=== PATIENT | male | born 1960 | race Caucasian/White ===

== ENCOUNTER 2016-07-15 16:39 | Inpatient (IN) | payer BC ==
[2016-07-15] MEDS ORDERED: Cyclobenzaprine TAB* 10 MG PO ONE (17:37)
--- NOTE | 2016-07-15 17:50 | ED ---
Lower Extremity - HPI Summary HPI Summary: Patient presents with right hip and back pain after slipping on ice today. His legs split apart when he fell and the brunt of the fall was absorbed by his bottom. He denies hitting his head or LOC. He was helped to his feet by two bystanders but any weight on his right hip was unbearable due to pain. He denies previous injury to the hip. No N/T, swelling or bruising. - History of Current Complaint Chief Complaint: EDExtremityLower Stated Complaint: FALL Time Seen by Provider: 07/15/16 17:09 Hx Obtained From: Patient Mechanism Of Injury: Fall From A Standing Position Onset of Pain: Immediate Onset/Duration: Still Present Severity Initially: Severe Severity Currently: Severe Pain Intensity: 7 Timing: Constant Location: Is Discrete @ - right hip Character Of Pain: Sharp, Aching Associated Signs And Symptoms: Positive: Negative Aggravating Factor(s): Standing, Movement Alleviating Factor(s): Rest Able to Bear Weight: No - Allergies/Home Medications Allergies/Adverse Reactions: Allergies Allergy/AdvReac Type Severity Reaction Status Date / Time No Known Allergies Allergy Verified 08/30/15 15:22 PMH/Surg Hx/FS Hx/Imm Hx Cardiovascular History: Reports: Hx Hypertension GI History: Reports: Hx Gastroesophageal Reflux Disease Musculoskeletal History: Reports: Hx Arthritis, Hx Back Problems, Hx Gout Sensory History: Reports: Hx Contacts or Glasses - reading, Hx Hearing Problem - slight loss right ear Opthamlomology History: Reports: Hx Contacts or Glasses - reading Psychiatric History: Reports: Hx Anxiety, Hx Depression - Surgical History Surgery Procedure, Year, and Place: appendectomy 40+ years ago; hernia repair at age 6 Infectious Disease History: No Infectious Disease History: Denies: Traveled Outside the [place] in Last 30 Days - Family History Known Family History: Positive: None - Social History Occupation: Employed Full-time Lives: With Family Alcohol Use: Daily until 10 days ago; currently none Alcohol Amount: last drink on Wednesday before that 6 beers a day and Vodka Substance Use Type: Reports: Other Substance Use Comment - Amount & Last Used: pt reports no subsance use Smoking Status (MU): Never Smoked Tobacco Review of Systems Positive: Arthralgia, Myalgia, Decreased ROM - right hip Negative: Bruising Negative: Weakness, Paresthesia, Numbness All Other Systems Reviewed And Are Negative: Yes Physical Exam Triage Information Reviewed: Yes Vital Signs On Initial Exam: Initial Vitals Temp Pulse Resp BP Pulse Ox 97.0 F 80 16 140/82 100 07/15/16 16:42 07/15/16 16:42 07/15/16 16:42 07/15/16 16:42 07/15/16 16:42 Vital Signs Reviewed: Yes Appearance: Positive: Well-Appearing, Pain Distress, Obese Skin: Positive: Warm, Skin Color Reflects Adequate Perfusion, Dry, Soft Head/Face: Positive: Normal Head/Face Inspection Eyes: Positive: EOMI, WILLEM, Conjunctiva Clear ENT: Positive: Hearing grossly normal Neck: Positive: Supple, Nontender Respiratory/Lung Sounds: Positive: Clear to Auscultation, Breath Sounds Present Cardiovascular: Positive: RRR Abdomen Description: Positive: Nontender, Soft Musculoskeletal: Positive: Limited @ - FROM left hip; right hip flex to 40, IR 10, ER 20, Pain @. Negative: Edema Right Neurological: Positive: Sensory/Motor Intact, Alert, Oriented to Person Place, Time, NV Bundle Intact Distally, Unable to Assess Gait Psychiatric: Positive: Affect/Mood Appropriate AVPU Assessment: Alert Diagnostics - Vital Signs Vital Signs Temp Pulse Resp BP Pulse Ox 07/15/16 16:42 97.0 F 80 16 140/82 100 - Laboratory Result Diagrams: 07/15/16 21:00 07/15/16 21:00 Lab Statement: Any lab studies that have been ordered have been reviewed, and results considered in the medical decision making process. - Radiology No standard instances Xray Interpretation: No Acute Changes Radiology Interpretation Completed By: Radiologist - CT No standard instances CT Interpretation: Positive (See Comments) - Right comminuted acetabular fracture CT Interpretation Completed By: Radiologist Re-Evaluation - Re-Evaluation First Eval Re-Evaluation Time: 22:10 Change: Worse Comment: Patient given pain medication and attempted to ambulate with walker and non-weight bearing on right lower extremity. He was uable to support himself and his pain intense. He is now nauseous. Lower Extremity Course/Dx - Course Course Of Treatment: Dr. Hannah recommended non-weight bearing and discharge home with follow-up in his office next week. When the patient attempted to ambulate with his walker, his pain was intense and he was unable to manage due to pain. Hospital medicine was consulted, and patient will be admitted for pain management. - Diagnoses Differential Diagnosis/HQI/PQRI: Positive: Arthritis, Cellulitis, Contusion, Fracture (Closed), Phlebitis, Puncture Wound, Sprain, Strain, Tendonitis Provider Diagnoses: Right acetabular fracture - Physician Notifications Discussed Care of Patient With: Dr. Hannah, orthopedic surgery; Dr. Reddy , hospitalist medicine Instructed by Provider To: Admit As Inpatient Discharge - Discharge Plan Condition: Stable Disposition: ADMITTED TO [facility]
[2016-07-15] MEDS ORDERED: Ibuprofen TAB* 400 MG PO ONE (18:54)
--- NOTE | 2016-07-15 19:14 | RAD ---
Indication: Right hip pain. 2 views of the right hip and an AP view of the pelvis demonstrates no fracture. No other bone or joint abnormality is identified. IMPRESSION: No fracture of the right hip or pelvis is noted.
--- NOTE | 2016-07-15 20:35 | RAD ---
Indication: Back Pain with weightbearing. CT of the lumbar spine was obtained in the axial plane. Sagittal and coronal reconstructed images were obtained. Mild compression of the L1 vertebra is noted. Age of this is undetermined. No clear fracture line or paraspinal hematoma is noted. The remainder of the vertebral bodies appear normal in height and alignment. At L5-S1 minimal broad-based protrusion flattens the epidural fat. No central foraminal stenosis is noted. L4-L5 broad-based protrusion flattens the thecal sac. Mild facet arthropathy is noted. L3-L4 broad-based protrusion flattens the thecal sac. No central or foraminal stenosis is noted. At L2-L3 minimal broad-based protrusion flattens the thecal sac. No central or foraminal stenosis is noted. At L1-L2 no disc protrusion is noted. No central or foraminal stenosis is noted. At T12-L1 broad-based protrusion flattens the thecal sac. No foraminal stenosis is noted. No evidence of fracture noted. IMPRESSION: MILD COMPRESSION OF THE L1 VERTEBRA AGE OF WHICH IS UNDETERMINED HOWEVER NO PARAVERTEBRAL SOFT TISSUE IS NOTED. BROAD-BASED PROTRUSION IS NOTED AT L4-L5, L3-L4 AND L2-L3. NO FRACTURE IS IDENTIFIED OTHERWISE. MINIMAL BROAD-BASED PROTRUSION IS NOTED AT T12-L1..
--- NOTE | 2016-07-15 20:40 | RAD ---
Indication: Pain with weightbearing in the right hip. CT of the right hip was obtained in the axial plane. Sagittal and coronal reconstructed images were obtained. The right femoral head and neck demonstrates no evidence of fracture. No impaction is noted. There is however fracture of the medial aspect of the acetabulum which is nondisplaced. The fracture is mildly comminuted. There is fracture line extending to the medial wall of the acetabulum. The anterior portion of the acetabulum is also mildly comminuted. Hematoma is noted in the right obturator muscles consistent with acute hematoma. IMPRESSION: Moderately comminuted fracture of the acetabulum especially the anterior lip extending into the medial wall with soft tissue swelling involving the obturator muscle. The right femoral head and neck are intact.
[2016-07-15] MEDS ORDERED: Ondansetron INJ* 2 MG/ML VIAL ONE (21:05)
[2016-07-15] MEDS ORDERED: Morphine INJ* 4 MG/ML 1 ML SYRINGE ONE (21:05)
[2016-07-15] MEDS ORDERED: Ondansetron INJ* 2 MG/ML VIAL IV ONE (21:11)
[2016-07-15 21:13] LABS: Hematocrit 34 % (42-52); Hemoglobin 12.1 g/dl (14.0-18.0); Mean Corpuscular HGB Conc 35 g/dl (31-36); Mean Corpuscular Hemoglobin 35 pg (27-31); Mean Corpuscular Volume 99 fL (80-94); Mean Platelet Volume 7 um3 (7.4-10.4); Red Blood Count 3.46 10^6/ul (4.0-5.4); Red Cell Distribution Width 14 % (10.5-15); White Blood Count 9.4 10^3/ul (3.5-10.8)
[2016-07-15] MEDS ORDERED: Morphine INJ* 4 MG/ML 1 ML SYRINGE IV ONE (21:20)
[2016-07-15 21:24] LABS: Albumin 4.2 g/dL (3.2-5.2); BUN/Creatinine Ratio 15.2 (8-20); Calcium 9.2 mg/dL (8.6-10.3); EGFR African American 160.6 (>60); EGFR Non-African American 124.9 (>60); Globulin 2.8 g/dL (2-4); Potassium 3.7 mmol/L (3.5-5.0); Total Bilirubin 1.5 mg/dL (0.2-1.0)
--- NOTE | 2016-07-15 22:41 | HP ---
H&P (Free Text) History and Physical: PCP: Beau Davis MD Date/Time of Evaluation: 07/15/2016 2230 CC: R hip pain s/p fall HPI: Mr Frausto is a 56YO male HX HTN who was getting out of his car ~1545 when he slipped on ice falling into a "splits" with immediate R hip pain. He was able to stand, but unable to walk. Bystanders assisted him back into his car and he drove to [facility] ED where CT RLE revealed a moderately comminuted, non- displaced R acetabular FX w/ intact femur. His pain has been unable to be adequately controlled in order for him to ambulate w/ walker, non-weight bearing to the RLE and so admission request is made. Tiago Hannah MD orthopedic surgery was consulted by ED & will follow. PMedHx HTN HX delirium tremens gout anxiety depression GERD Allergies No Known Allergies Allergy (Verified 08/30/15 15:22) Ambulatory Orders Allopurinol TAB* [Zyloprim 300 MG TAB*] 300 mg PO DAILY 08/29/15 Coenzyme D51-Qlgi Oil-Vitamin [Co-Q 10 Slater-3 Fish Oil] 1 cap PO DAILY Colchicine* [Colcrys*] 0.6 mg PO DAILY PRN 08/29/15 Glucosamine-Chondroitin [Osteo Bi-Flex Regular Str 250-200 mg] 1 tab PO BID 09/08 Irbesartan 300 mg PO DAILY 08/29/15 Multivitamins/Minerals TAB* [Theragran/minerals TAB*] 1 tab PO DAILY 08/29/15 Omeprazole CAP* [Prilosec CAP* 20 MG] 20 mg PO DAILY 08/29/15 Acetaminophen TAB* [Tylenol TAB*] 650 mg PO Q4H PRN #0 tab 08/31/15 Citalopram TAB* [Celexa TAB*] 20 mg PO DAILY #30 tab 08/31/15 Thiamine TAB* [Vitamin B-1 TAB 100 MG*] 100 mg PO DAILY tab 08/31/15 Megared Slater-3 Krill Oil 500 mg 07/15/16 PSurgHx B inguinal hernia repair appendectomy SocHx: no tobacco or recreational drugs, occasional alcohol; lives with his ; works as a employment law attorney; full code status FamHx: Father passed of complications of a brain tumor surgery. Mother is alive in her 80s. ROS: as above, otherwise reviewed and all were negative Constitutional: NAD, normally developed, obese white male vitals: Vital Signs Temp 36.1 C 07/15/16 16:42 Pulse 64 07/15/16 22:15 Resp 22 07/15/16 22:15 BP 106/60 07/15/16 22:15 Pulse Ox 96 07/15/16 22:15 Intake & Output 07/14/16 07/15/16 07/15/16 23:59 11:59 23:59 Weight 95.254 kg HEENM: atraumatic; sclera/conjunctiva: non-icteric/clear; hearing: clinically intact; oropharynx: clear Neck: soft tissue: non-tender; thyroid: normal Pulmonary: clear to auscultation bilaterally, good aeration, no accessory muscle use CV: RR/RR, normal S1S2, no carotid bruit, no jugular venous distention, 2+ B DP/ PT, no edema Abdominal: soft, non-distended, non-tender, no rebound/guarding/rigidity, normoactive bowel sounds, no hepatosplenomegaly or masses, no costovertebral angle tenderness Musculoskeletal: general: grossly intact; gait: unable to ambulate 2nd pain Integumental: normal appearance and texture of exposed skin Psychiatric orientation: AA&O to PPS affect: calm mood: cooperative eye contact: good content: reliable responses: timely insight: good Testing: Lab Results 07/15/16 07/15/16 07/15/16 Range/Units 21:00 21:00 21:00 WBC 9.4 (3.5-10.8) 10^3/ul RBC 3.46 L (4.0-5.4) 10^6/ul Hgb 12.1 L (14.0-18.0) g/dl Hct 34 L (42-52) % MCV 99 H (80-94) fL MCH 35 H (27-31) pg MCHC 35 (31-36) g/dl RDW 14 (10.5-15) % Plt Count 155 (150-450) 10^3/ul MPV 7 L (7.4-10.4) um3 Neut % (Auto) 82.5 (38-83) % Lymph % (Auto) 13.3 L (25-47) % Newberry % (Auto) 3.4 (1-9) % Eos % (Auto) 0.4 (0-6) % Baso % (Auto) 0.4 (0-2) % Absolute Neuts (auto) 7.7 (1.5-7.7) 10^3/ul Absolute Lymphs (auto) 1.2 (1.0-4.8) 10^3/ul Absolute Monos (auto) 0.3 (0-0.8) 10^3/ul Absolute Eos (auto) 0 (0-0.6) 10^3/ul Absolute Basos (auto) 0 (0-0.2) 10^3/ul Absolute Nucleated RBC 0 10^3/ul Nucleated RBC % 0 INR (Anticoag Therapy) 0.98 (0.89-1.11) Sodium 136 (133-145) mmol/L Potassium 3.7 (3.5-5.0) mmol/L Chloride 100 L (101-111) mmol/L Carbon Dioxide 21 L (22-32) mmol/L Anion Gap 15 H (2-11) mmol/L BUN 10 (6-24) mg/dL Creatinine 0.66 L (0.67-1.17) mg/dL Est GFR ( Amer) 160.6 (>60) Est GFR (Non-Af Amer) 124.9 (>60) BUN/Creatinine Ratio 15.2 (8-20) Glucose 81 (70-100) mg/dL Calcium 9.2 (8.6-10.3) mg/dL Total Bilirubin 1.50 H (0.2-1.0) mg/dL AST 46 H (13-39) U/L ALT 28 (7-52) U/L Alkaline Phosphatase 163 H (34-104) U/L Total Protein 7.0 (6.4-8.9) g/dL Albumin 4.2 (3.2-5.2) g/dL Globulin 2.8 (2-4) g/dL Albumin/Globulin Ratio 1.5 (1-3) CT RLE WO: IMPRESSION: Moderately comminuted fracture of the acetabulum especially the anterior lip extending into the medial wall with soft tissue swelling involving the obturator muscle. The right femoral head and neck are intact. XRY R hip/pelvis: IMPRESSION: No fracture of the right hip or pelvis is noted. CT L-spine WO: IMPRESSION: MILD COMPRESSION OF THE L1 VERTEBRA AGE OF WHICH IS UNDETERMINED HOWEVER NO PARAVERTEBRAL SOFT TISSUE IS NOTED. BROAD-BASED PROTRUSION IS NOTED AT L4-L5, L3-L4 AND L2-L3. NO FRACTURE IS IDENTIFIED OTHERWISE. MINIMAL BROAD-BASED PROTRUSION IS NOTED AT T12-L1. Impression: 56M presenting with moderately comminuted, non-displaced R acetabular FX w/ intractable pain 2nd mechanical fall DIAGNOSIS & PLAN Primary R acetabular FX : pain control : PT evaluation : non-weight bearing RLE : Tiago Hannah MD orthopedic surgery consulted by ED, will follow : supportive care Secondary HTN : continue irbesartan gout : continue allopurinol anxiety : continue lorazepam depression : continue citalopram HX delirium tremens : WAM protocol Admission Rational: observation for intractable pain DVTp: SCDs & heparin SQ Code Status: full HCP:
[2016-07-15] MEDS ORDERED: CMCS: Melatonin (NF) 3 MG TAB PO PRN (23:11)
[2016-07-15] MEDS ORDERED: Ondansetron INJ* 2 MG/ML VIAL IV PRN (23:11)
[2016-07-15] MEDS ORDERED: NS 0.9% 1000 ML* 1,000 ML IV SCH (23:15)
[2016-07-15] MEDS: HYDROmorphone* 1 MG/ML 1 ML SYR IV PRN (23:27)
[2016-07-15] MEDS ORDERED: Thiamine IV* 100 MG/ML 2 ML VIAL IM ONE (23:29)
[2016-07-16] MEDS: traMADol TAB* 50 MG PO PRN ×3 (00:55→21:37)
[2016-07-16] MEDS: HYDROmorphone* 1 MG/ML 1 ML SYR IV PRN ×5 (01:34→21:36)
[2016-07-16] MEDS: oxyCODONE TAB* 5 MG TAB PO PRN ×2 (04:26→09:07)
[2016-07-16] MEDS: Heparin VIAL(*) 5000 UNITS/ML VIAL (FIVE THOUSAND) SUBCUT SCH ×3 (06:26→21:36)
[2016-07-16] MEDS: Omeprazole CAP* 20 MG PO SCH (07:44)
[2016-07-16] MEDS: Losartan TAB* 25 MG PO SCH (07:44)
[2016-07-16] MEDS: Multivitamins/Minerals TAB PO SCH (07:44)
[2016-07-16] MEDS: Thiamine TAB* 100 MG TAB PO SCH (07:44)
[2016-07-16] MEDS: Docusate CAP* 100 MG PO SCH ×2 (07:44→21:37)
[2016-07-16] MEDS: Folic Acid TAB* 1 MG PO SCH (07:45)
[2016-07-16] MEDS: Citalopram TAB* 20 MG PO SCH (07:45)
[2016-07-16] MEDS: Allopurinol TAB* 300 MG PO SCH (07:45)
[2016-07-16] MEDS: LORazepam INJ* 2 MG/ML 1 ML VIAL IV SCH ×2 (07:45→10:24)
[2016-07-16] MEDS: Acetaminophen TAB* 325 MG PO PRN ×2 (09:08→16:53)
[2016-07-16 10:24] LABS: Hematocrit 33 % (42-52); Hemoglobin 11.2 g/dl (14.0-18.0); Mean Corpuscular HGB Conc 34 g/dl (31-36); Mean Corpuscular Hemoglobin 35 pg (27-31); Mean Corpuscular Volume 102 fL (80-94); Mean Platelet Volume 7 um3 (7.4-10.4); Red Blood Count 3.22 10^6/ul (4.0-5.4); Red Cell Distribution Width 15 % (10.5-15); White Blood Count 6.1 10^3/ul (3.5-10.8)
[2016-07-16 11:00] LABS: BUN/Creatinine Ratio 12.1 (8-20); Calcium 8.6 mg/dL (8.6-10.3); EGFR African American 110.8 (>60); EGFR Non-African American 86.2 (>60); Potassium 3.7 mmol/L (3.5-5.0)
--- NOTE | 2016-07-16 11:53 | PN ---
Subjective Date of Service: 07/16/16 Interval History: Patient seen and examined at bedside. Pt is drowsy but awakes to voice. Denies fever, chills, shortness of breath, chest discomfort, N/V/D, numbness or tingling. Pt reports chronic back problems, he reports fracturing his back in 1987. Family History: Unchanged from Admission Social History: Unchanged from Admission Past Medical History: Unchanged from Admission Objective Active Medications: Acetaminophen (Tylenol Tab*) 650 mg PO Q6H PRN Reason: FEVER/PAIN Allopurinol (Zyloprim Tab*) 300 mg PO DAILY ROOPA Citalopram Hydrobromide (Celexa Tab*) 20 mg PO DAILY [facility] Docusate Sodium (Colace Cap*) 200 mg PO BID ROOPA Folic Acid (Folvite Tab*) 1 mg PO DAILY ROOPA Heparin Sodium (Porcine) (Heparin Vial(*)) 5,000 units SUBCUT Q8HR ROOPA Hydromorphone HCl (Dilaudid Iv*) 1 mg IV Q2H PRN Reason: PAIN Sodium Chloride (Ns 0.9% 1000 Ml*) 1,000 mls @ 75 mls/hr IV PER RATE ROOPA Lorazepam (Ativan Inj*) 0 mg IV .PER WAM SCORE ROOPA Reason: Protocol Losartan Potassium (Cozaar Tab*) 100 mg PO DAILY ROOPA Melatonin (Melatonin (Nf)) 3 mg PO BEDTIME PRN Reason: Sleep Multivitamins/Minerals (Theragran/Minerals Tab*) 1 tab PO DAILY ROOPA Omeprazole (Prilosec Cap*) 20 mg PO DAILY ROOPA Ondansetron HCl (Zofran Inj*) 4 mg IV Q6H PRN Reason: NAUSEA Oxycodone HCl (Roxycodone Tab*) 5 mg PO Q4H PRN Reason: PAIN Thiamine HCl (Vitamin B-1 Tab*) 100 mg PO DAILY ROOPA Tramadol HCl (Ultram*) 50 mg PO Q6H PRN Reason: PAIN Vital Signs 07/15/16 07/15/16 07/15/16 23:27 23:30 23:50 Temperature 98.1 F Pulse Rate 100 93 Respiratory 16 15 18 Rate Blood Pressure 137/75 (mmHg) O2 Sat by Pulse 97 Oximetry 07/16/16 07/16/16 07/16/16 00:18 00:27 00:39 Temperature 98.1 F Pulse Rate 93 Respiratory 15 18 20 Rate Blood Pressure 137/75 (mmHg) O2 Sat by Pulse 97 Oximetry 07/16/16 07/16/16 07/16/16 04:09 04:26 05:26 Temperature 97.8 F Pulse Rate 106 Respiratory 17 16 18 Rate Blood Pressure 130/76 (mmHg) O2 Sat by Pulse 99 Oximetry 07/16/16 07/16/16 07/16/16 06:00 06:11 06:26 Temperature 98.4 F Pulse Rate 102 Respiratory 18 17 18 Rate Blood Pressure 117/76 (mmHg) O2 Sat by Pulse 97 Oximetry 07/16/16 07/16/16 07/16/16 07:26 07:31 07:32 Temperature 98.1 F Pulse Rate 105 Respiratory 18 18 18 Rate Blood Pressure 134/80 (mmHg) O2 Sat by Pulse 97 Oximetry 07/16/16 07/16/16 07/16/16 09:07 09:08 09:51 Temperature Pulse Rate 123 Respiratory 18 18 18 Rate Blood Pressure 119/68 (mmHg) O2 Sat by Pulse 93 Oximetry Oxygen Devices in Use Now: None Appearance: NAD, sitting up in a chair Eyes: No Scleral Icterus, PERRLA Ears/Nose/Mouth/Throat: NL Teeth, Lips, Gums, Mucous Membranes Moist Neck: NL Appearance and Movements; NL JVP, Trachea Midline Respiratory: Symmetrical Chest Expansion and Respiratory Effort, Clear to Auscultation Cardiovascular: NL Sounds; No Murmurs; No JVD, RRR Abdominal: NL Sounds; No Tenderness; No Distention Extremities: No Edema Skin: No Rash or Ulcers Neurological: Alert and Oriented x 3 - , drowsy, NL Muscle Strength and Tone Lines/Tubes/Other Access: Clean, Dry and Intact Peripheral IV - site benign Nutrition: Taking PO's Result Diagrams: 07/16/16 09:23 07/16/16 09:24 Assess/Plan/Problems-Billing Assessment: Mr. Frausto is a 56 yo male who presented to the emergency room after a fall to home and was found to have an acetabular fracture with intractable pain. - Patient Problems (1) Right acetabular fracture Code(s): S32.401A - UNSP FRACTURE OF RIGHT ACETABULUM, INIT FOR CLOS FX SNOMED Code(s): 11109285 Comment: - Continues to have pain and was unable to ambulate with physical therapy - Continue PT and pain control - Ortho input appreciated, continue non-weightbearing right LE - Will need to follow up with Ortho outpatient (2) Chronic back pain Code(s): M54.9 - DORSALGIA, UNSPECIFIED; G89.29 - OTHER CHRONIC PAIN SNOMED Code(s): 973637271 Comment: - Continue pain medication - Pt reports history of a back fracture in 1987 (3) HTN (hypertension) Code(s): I10 - ESSENTIAL (PRIMARY) HYPERTENSION SNOMED Code(s): 16915886 Comment: - Normotensive - Continue irbesartan (4) History of gout Code(s): Z87.39 - PERSONAL HISTORY OF DISEASES OF THE MS SYS AND CONN TISS SNOMED Code(s): 135590380 Comment: - Continue allopurinol (5) Anxiety and depression Code(s): F41.9 - ANXIETY DISORDER, UNSPECIFIED; F32.9 - MAJOR DEPRESSIVE DISORDER, SINGLE EPISODE, UNSPECIFIED SNOMED Code(s): 018621201 Comment: - Continue lorazepam and citalopram (6) Alcohol abuse Code(s): F10.10 - ALCOHOL ABUSE, UNCOMPLICATED SNOMED Code(s): 70492089 Comment: - Pt states he drinks 6 beers per day - History of delirium tremens - Continue WAM, has been scoring 4-8 (7) DVT prophylaxis Code(s): DUL8440 - SNOMED Code(s): 226250990 Comment: - Continue SQ heparin (8) Full code status Code(s): Z78.9 - OTHER SPECIFIED HEALTH STATUS SNOMED Code(s): 767675122 Status and Disposition: OBV to Inpatient. Pt continues to have pain and is unable to ambulate. Discharge to home vs rehab when pain is better controlled.
--- NOTE | 2016-07-16 11:55 | CONS ---
ORTHOPEDIC CONSULTATION: DATE OF ADMISSION: 07/15/16 ADMITTING PHYSICIAN: Dr. Tay. ATTENDING ORTHOPEDIC SURGEON: Dr. Hugo Hannah. CHIEF COMPLAINT: Right groin pain. HISTORY OF PRESENT ILLNESS: The patient is a 56-year-old male who was getting out of his car on the afternoon of 07/15/16 when he slipped on ice and fell into a splitting position and then on to his buttock. He was unable to stand or bear weight. He was assisted back into his vehicle by some byst gage and he drove himself to the emergency department here at [facility] where he under went plain films and CT of the right hip, which reveal a nondisplaced right acetabular fracture with out evidence of femur fracture. Due to his intractable pain and inability to ambulate, he was admit caprice to the medical service. PAST MEDICAL HISTORY: Significant for hypertension, gout, anxiety, depression, GERD, history of DTs . ALLERGIES: No known drug allergies. CURRENT MEDICATIONS: 1. Allopurinol. 2. Coenzyme Q10 with fish oil. 3. Colchicine. 4. Glucosamine chondroitin. 5. Irbesartan. 6. Multivitamin. 7. Omeprazole. 8. Tylenol p.r.n. pain. PHYSICAL EXAMINATION: The patient is alert and oriented x3 in no acute distress. Examination of the right lower extremity reveals that he is unable to do an active straight leg raise due to right derik in pain. He is able to lift his heel actively off the chair on the left side. 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 His pedal pulses 2+ bilaterally. Calves are soft and nontender. He has active dorsiflexion and plantar flexion bilaterally. DIAGNOSTIC STUDIES/LAB DATA: Lumbar spine shows mild soft tissue tenderness diffusely. No specific vertebral tenderness identified. CT of the right hip reveals a nondisplaced fracture of the medial wall of the acetabulum. There is mild comminution. Hematoma is noted in the obturator musculature as well. CT of the lumbar spine shows evidence of an L1 compression fracture with minimal compress ion, age indeterminate. IMPRESSION: Nondisplaced right acetabulum fracture, probable old L1 compression fracture of lumbar spine. PLAN: The patient is admitted to the medical service. Physical therapy has been ordered, nonweight bearing for the right lower extremity. If he continues to have significant back pain, bracing may b e indicated for support. This was discussed with the medical service provider. MICHAEL SWANSON [id number]/[facility] #: [id number]
[2016-07-17] MEDS: HYDROmorphone* 1 MG/ML 1 ML SYR IV PRN ×4 (03:37→21:11)
[2016-07-17] MEDS: traMADol TAB* 50 MG PO PRN (06:06)
[2016-07-17] MEDS: Heparin VIAL(*) 5000 UNITS/ML VIAL (FIVE THOUSAND) SUBCUT SCH ×3 (06:06→21:09)
--- NOTE | 2016-07-17 08:36 | PN ---
Progress Note - Progress Note SOAP: Subjective: [56 y/o M s/p fall 07/16/2016 resulting in acetabular fracture, admitted for PT/ OT, pain management. Pain located in hip joint, deep, and ? inner thigh. ] Objective: [General- well appearing while resting, NAD AO MSK- PT 2+ b/l, neg homans sign, small, round defect noted lateral mid thigh Right side, no ecchymosis seen, no tenderness to palpation over groin region, sensation intact. + pain with minimal internal rotation, less with minimal external rotation. ] Vital Signs Temp 98.3 F 07/17/16 07:53 Pulse 96 07/17/16 07:53 Resp 18 07/17/16 07:53 BP 135/82 07/17/16 07:53 Pulse Ox 97 07/17/16 07:53 Intake & Output 07/16/16 07/17/16 07/17/16 18:59 06:59 18:59 Intake Total 1762 2018 Output Total 550 1450 Balance 1212 568 Intake: IV Fluids 687 1038 NS (0.9%) 687 1038 Oral 1075 980 Output: Michaels 1450 Residual 550 14 Fr 550 Laboratory Results - last 24 hr 07/16/16 07/16/16 09:23 09:24 WBC 6.1 RBC 3.22 L Hgb 11.2 L Hct 33 L MCV 102 H MCH 35 H MCHC 34 RDW 15 Plt Count 125 L MPV 7 L Sodium 133 Potassium 3.7 Chloride 99 L Carbon Dioxide 25 Anion Gap 9 BUN 11 Creatinine 0.91 Est GFR ( Amer) 110.8 Est GFR (Non-Af Amer) 86.2 BUN/Creatinine Ratio 12.1 Glucose 97 Calcium 8.6 Assessment: [56 y/o M s/p fall 07/16/2016 resulting in acetabular fracture] Plan: [- DVT prophylaxis- heparin - Pain management- oxycodone increased to 10mg q4 for severe, 5mg for mild, and breakthrough diluadid - Toe touch weight bearing - Dr Hannah to follow up this afternoon ] Active Medications Generic Name Dose Route Start Last Admin Trade Name Freq PRN Reason Stop Dose Admin Acetaminophen 650 mg 07/15/16 23:11 07/16/16 16:53 Tylenol Tab* PO 650 mg Q6H PRN Administration FEVER/PAIN Allopurinol 300 mg 07/16/16 09:00 07/16/16 07:45 Zyloprim Tab* PO 300 mg DAILY ROOPA Administration Citalopram Hydrobromide 20 mg 07/16/16 09:00 07/16/16 07:45 Celexa Tab* PO 20 mg DAILY ROOPA Administration Docusate Sodium 200 mg 07/16/16 09:00 07/16/16 21:37 Colace Cap* PO 200 mg BID ROOPA Administration Folic Acid 1 mg 07/16/16 09:00 07/16/16 07:45 Folvite Tab* PO 1 mg DAILY ROOPA Administration Heparin Sodium (Porcine) 5,000 units 07/16/16 06:00 07/17/16 06:06 Heparin Vial(*) SUBCUT 5,000 units Q8HR ROOPA Administration Hydromorphone HCl 1 mg 07/15/16 23:11 07/17/16 03:37 Dilaudid Iv* IV 1 mg Q2H PRN Administration PAIN Sodium Chloride 1,000 mls @ 75 mls/hr 07/15/16 23:15 07/16/16 00:54 Ns 0.9% 1000 Ml* IV 75 mls/hr PER RATE ROOPA Administration Lorazepam 0 mg 07/15/16 23:45 07/16/16 10:24 Ativan Inj* IV 2 mg .PER WAM SCORE ROOPA Administration Protocol Losartan Potassium 100 mg 07/16/16 09:00 07/16/16 07:44 Cozaar Tab* PO 100 mg DAILY ROOPA Administration Melatonin 3 mg 07/15/16 23:11 07/16/16 01:22 Melatonin (Nf) PO 3 mg BEDTIME PRN Administration Sleep Protocol Multivitamins/Minerals 1 tab 07/16/16 09:00 07/16/16 07:44 Theragran/Minerals Tab* PO 1 tab DAILY ROOPA Administration Omeprazole 20 mg 07/16/16 09:00 07/16/16 07:44 Prilosec Cap* PO 20 mg DAILY ROOPA Administration Ondansetron HCl 4 mg 07/15/16 23:11 Zofran Inj* IV Q6H PRN NAUSEA Oxycodone HCl 5 mg 07/15/16 23:11 07/16/16 09:07 Roxycodone Tab* PO 5 mg Q4H PRN Administration PAIN Thiamine HCl 100 mg 07/16/16 09:00 07/16/16 07:44 Vitamin B-1 Tab* PO 100 mg DAILY ROOPA Administration Tramadol HCl 50 mg 07/15/16 23:11 07/17/16 06:06 Ultram* PO 50 mg Q6H PRN Administration PAIN
[2016-07-17] MEDS: Folic Acid TAB* 1 MG PO SCH (09:22)
[2016-07-17] MEDS: Allopurinol TAB* 300 MG PO SCH (09:22)
[2016-07-17] MEDS: Losartan TAB* 25 MG PO SCH (09:23)
[2016-07-17] MEDS: Thiamine TAB* 100 MG TAB PO SCH (09:23)
[2016-07-17] MEDS: Docusate CAP* 100 MG PO SCH ×2 (09:23→22:30)
[2016-07-17] MEDS: Omeprazole CAP* 20 MG PO SCH (09:23)
[2016-07-17] MEDS: Multivitamins/Minerals TAB PO SCH (09:23)
[2016-07-17] MEDS: Citalopram TAB* 20 MG PO SCH (09:24)
[2016-07-17] MEDS: oxyCODONE TAB* 5 MG TAB PO PRN ×3 (12:52→22:52)
[2016-07-17] MEDS ORDERED: Magnesium Hydroxide LIQ* 30 ML UDC PO PRN (17:29)
--- NOTE | 2016-07-17 17:44 | PN ---
Subjective Date of Service: 07/17/16 Interval History: Patient seen and examined at bedside. Pt reports that he was able to get up to a chair 3 times today and that he continues to have pain, but it is more controlled. Denies fever, chills, shortness of breath, chest discomfort, N/V/D. Pt reports that his stomach feels off this afternoon, like he needs to move his bowels. Family History: Unchanged from Admission Social History: Unchanged from Admission Past Medical History: Unchanged from Admission Objective Active Medications: Acetaminophen (Tylenol Tab*) 650 mg PO Q6H PRN Reason: FEVER/PAIN Allopurinol (Zyloprim Tab*) 300 mg PO DAILY [facility] Citalopram Hydrobromide (Celexa Tab*) 20 mg PO DAILY [facility] Docusate Sodium (Colace Cap*) 200 mg PO BID [facility] Folic Acid (Folvite Tab*) 1 mg PO DAILY [facility] Heparin Sodium (Porcine) (Heparin Vial(*)) 5,000 units SUBCUT Q8HR [facility] Hydromorphone HCl (Dilaudid Iv*) 1 mg IV Q2H PRN Reason: PAIN Lorazepam (Ativan Inj*) 0 mg IV .PER WAM SCORE [facility] Reason: Protocol Losartan Potassium (Cozaar Tab*) 100 mg PO DAILY [facility] Magnesium Hydroxide (Milk Of Magnesia Liq*) 30 ml PO Q6H PRN Reason: CONSTIPATION Melatonin (Melatonin (Nf)) 3 mg PO BEDTIME PRN; Protocol Reason: Sleep Multivitamins/Minerals (Theragran/Minerals Tab*) 1 tab PO DAILY [facility] Omeprazole (Prilosec Cap*) 20 mg PO DAILY [facility] Ondansetron HCl (Zofran Inj*) 4 mg IV Q6H PRN Reason: NAUSEA Oxycodone HCl (Roxycodone Tab*) 5 mg PO Q4H PRN Reason: PAIN Oxycodone HCl (Roxycodone Tab*) 10 mg PO Q4H PRN Reason: PAIN - SEVERE Thiamine HCl (Vitamin B-1 Tab*) 100 mg PO DAILY [facility] Tramadol HCl (Ultram*) 50 mg PO Q6H PRN Reason: PAIN Vital Signs 07/16/16 07/16/16 07/16/16 18:00 18:26 19:50 Temperature Pulse Rate 108 Respiratory 18 16 20 Rate Blood Pressure 132/86 (mmHg) O2 Sat by Pulse 97 Oximetry 07/16/16 07/16/16 07/16/16 21:10 21:36 21:37 Temperature 98.5 F Pulse Rate 99 Respiratory 20 18 20 Rate Blood Pressure 126/76 (mmHg) O2 Sat by Pulse 95 Oximetry 07/16/16 07/16/16 07/16/16 22:36 23:22 23:37 Temperature 98.2 F Pulse Rate 99 Respiratory 18 20 18 Rate Blood Pressure 109/74 (mmHg) O2 Sat by Pulse 94 Oximetry 07/17/16 07/17/16 07/17/16 01:10 03:23 03:37 Temperature 97.3 F 98.2 F Pulse Rate 89 94 Respiratory 18 18 18 Rate Blood Pressure 131/81 136/82 (mmHg) O2 Sat by Pulse 95 97 Oximetry 07/17/16 07/17/16 07/17/16 04:37 05:11 06:06 Temperature 98.3 F Pulse Rate 96 Respiratory 18 18 20 Rate Blood Pressure 138/88 (mmHg) O2 Sat by Pulse 96 Oximetry 07/17/16 07/17/16 07/17/16 07:41 07:53 08:06 Temperature 98.3 F Pulse Rate 96 Respiratory 16 18 16 Rate Blood Pressure 135/82 (mmHg) O2 Sat by Pulse 97 Oximetry 07/17/16 07/17/16 07/17/16 08:59 09:59 12:08 Temperature 97.7 F Pulse Rate 111 Respiratory 16 16 18 Rate Blood Pressure 121/71 (mmHg) O2 Sat by Pulse 97 Oximetry 07/17/16 07/17/16 15:31 15:45 Temperature 98.4 F Pulse Rate 107 Respiratory 16 16 Rate Blood Pressure 132/77 (mmHg) O2 Sat by Pulse 96 Oximetry Oxygen Devices in Use Now: None Appearance: NAD, laying in bed Eyes: No Scleral Icterus, PERRLA Ears/Nose/Mouth/Throat: NL Teeth, Lips, Gums, Mucous Membranes Moist Respiratory: Symmetrical Chest Expansion and Respiratory Effort, Clear to Auscultation Cardiovascular: NL Sounds; No Murmurs; No JVD, RRR Abdominal: NL Sounds; No Tenderness; No Distention Extremities: No Edema Skin: No Rash or Ulcers Neurological: Alert and Oriented x 3, NL Muscle Strength and Tone Lines/Tubes/Other Access: Clean, Dry and Intact Peripheral IV - site benign Nutrition: Taking PO's Result Diagrams: 07/16/16 09:23 07/16/16 09:24 Assess/Plan/Problems-Billing Assessment: Mr. Frausto is a 56 yo male who presented to the emergency room after a fall to home and was found to have an acetabular fracture with intractable pain. - Patient Problems (1) Right acetabular fracture Code(s): S32.401A - UNSP FRACTURE OF RIGHT ACETABULUM, INIT FOR CLOS FX SNOMED Code(s): 48776341 Comment: - Continues to have pain, but reports improvement from yesterday. - Has been able to get up to a chair 3 times today - Continue PT and pain control - Ortho input appreciated, advance to toe-touch weight bearing right LE - Will need to follow up with Ortho outpatient (2) Urinary retention Code(s): R33.9 - RETENTION OF URINE, UNSPECIFIED SNOMED Code(s): 613565495 Comment: - Required urinary catheter to be placed yesterday - Suspect related to narcotics - Will attempt to remove catheter in the morning (3) Chronic back pain Code(s): M54.9 - DORSALGIA, UNSPECIFIED; G89.29 - OTHER CHRONIC PAIN SNOMED Code(s): 571438702 Comment: - Continue pain medication - Pt reports history of a back fracture in 1987 (4) HTN (hypertension) Code(s): I10 - ESSENTIAL (PRIMARY) HYPERTENSION SNOMED Code(s): 67786859 Comment: - Normotensive - Continue irbesartan (5) History of gout Code(s): Z87.39 - PERSONAL HISTORY OF DISEASES OF THE MS SYS AND CONN TISS SNOMED Code(s): 699764302 Comment: - Continue allopurinol (6) Anxiety and depression Code(s): F41.9 - ANXIETY DISORDER, UNSPECIFIED; F32.9 - MAJOR DEPRESSIVE DISORDER, SINGLE EPISODE, UNSPECIFIED SNOMED Code(s): 369596524 Comment: - Continue lorazepam and citalopram (7) Alcohol abuse Code(s): F10.10 - ALCOHOL ABUSE, UNCOMPLICATED SNOMED Code(s): 98290419 Comment: - Pt states he drinks 6 beers per day - History of delirium tremens - Continue WAM, has been scoring 3-5 - Elevated LFTs, suspect r/t alcohol use, will recheck labs in the morning (8) DVT prophylaxis Code(s): [id number] - SNOMED Code(s): 393590206 Comment: - Continue SQ heparin (9) Full code status Code(s): Z78.9 - OTHER SPECIFIED HEALTH STATUS SNOMED Code(s): 553942901 Status and Disposition: OBV to Inpatient. Pt continues to have pain and is unable to ambulate. Discharge to home vs rehab when pain is better controlled.
[2016-07-17] MEDS: Acetaminophen TAB* 325 MG PO PRN (21:08)
[2016-07-18] MEDS: HYDROmorphone* 1 MG/ML 1 ML SYR IV PRN ×2 (00:56→19:05)
[2016-07-18] MEDS: oxyCODONE TAB* 5 MG TAB PO PRN ×3 (03:47→22:59)
[2016-07-18] MEDS: LORazepam INJ* 2 MG/ML 1 ML VIAL IV SCH (05:48)
[2016-07-18] MEDS: Heparin VIAL(*) 5000 UNITS/ML VIAL (FIVE THOUSAND) SUBCUT SCH ×3 (05:55→21:45)
[2016-07-18 07:30] LABS: Albumin 3.8 g/dL (3.2-5.2); BUN/Creatinine Ratio 11.3 (8-20); Calcium 9.2 mg/dL (8.6-10.3); EGFR African American 147.6 (>60); EGFR Non-African American 114.8 (>60); Globulin 2.9 g/dL (2-4); Potassium 3.6 mmol/L (3.5-5.0); Total Bilirubin 1.8 mg/dL (0.2-1.0); Total Protein 6.7 g/dL (6.4-8.9)
[2016-07-18] MEDS ORDERED: LORazepam INJ* 2 MG/ML 1 ML VIAL SCH (08:10)
--- NOTE | 2016-07-18 08:15 | PN ---
Subjective Date of Service: 07/18/16 Interval History: Patient seen and examined at bedside. Pt states that he feels ok today, but [facility] [place] staff note the he is going through alcohol withdrawal this morning and has been hallucinating, restless and confused. Denies fever, chills, shortness of breath , chest discomfort, N/V/D. Pt states that his pain is controlled. Pt is not forthcoming with the amount of alcohol that he drinks, he denies daily drinking and reports that the amount he drinks varies. Family History: Unchanged from Admission Social History: Unchanged from Admission Past Medical History: Unchanged from Admission Objective Active Medications: Acetaminophen (Tylenol Tab*) 650 mg PO Q6H PRN Reason: FEVER/PAIN Allopurinol (Zyloprim Tab*) 300 mg PO DAILY [facility] Citalopram Hydrobromide (Celexa Tab*) 20 mg PO DAILY [facility] Docusate Sodium (Colace Cap*) 200 mg PO BID [facility] Folic Acid (Folvite Tab*) 1 mg PO DAILY [facility] Heparin Sodium (Porcine) (Heparin Vial(*)) 5,000 units SUBCUT Q8HR [facility] Hydromorphone HCl (Dilaudid Iv*) 1 mg IV Q2H PRN Reason: PAIN Lorazepam (Ativan Inj*) 0 mg IV .PER WAM SCORE [facility] Reason: Protocol Losartan Potassium (Cozaar Tab*) 100 mg PO DAILY [facility] Magnesium Hydroxide (Milk Of Magnesia Liq*) 30 ml PO Q6H PRN Reason: CONSTIPATION Melatonin (Melatonin (Nf)) 3 mg PO BEDTIME PRN; Protocol Reason: Sleep Multivitamins/Minerals (Theragran/Minerals Tab*) 1 tab PO DAILY [facility] Omeprazole (Prilosec Cap*) 20 mg PO DAILY [facility] Ondansetron HCl (Zofran Inj*) 4 mg IV Q6H PRN Reason: NAUSEA Oxycodone HCl (Roxycodone Tab*) 5 mg PO Q4H PRN Reason: PAIN Oxycodone HCl (Roxycodone Tab*) 10 mg PO Q4H PRN Reason: PAIN - SEVERE Thiamine HCl (Vitamin B-1 Tab*) 100 mg PO DAILY [facility] Tramadol HCl (Ultram*) 50 mg PO Q6H PRN Reason: PAIN Vital Signs 07/17/16 07/17/16 07/17/16 08:59 09:59 12:08 Temperature 97.7 F Pulse Rate 111 Respiratory 16 16 18 Rate Blood Pressure 121/71 (mmHg) O2 Sat by Pulse 97 Oximetry 07/17/16 07/17/16 07/17/16 15:31 15:45 18:45 Temperature 98.4 F Pulse Rate 107 Respiratory 16 16 16 Rate Blood Pressure 132/77 (mmHg) O2 Sat by Pulse 96 Oximetry 07/17/16 07/17/16 07/17/16 19:55 20:00 20:45 Temperature 100.6 F Pulse Rate 108 Respiratory 18 18 16 Rate Blood Pressure 135/78 (mmHg) O2 Sat by Pulse 96 Oximetry 07/17/16 07/17/16 07/18/16 22:52 23:26 00:52 Temperature 98.7 F Pulse Rate 106 Respiratory 16 16 18 Rate Blood Pressure 135/74 (mmHg) O2 Sat by Pulse 98 Oximetry 07/18/16 07/18/16 07/18/16 00:56 01:56 03:41 Temperature 98.5 F Pulse Rate 104 Respiratory 18 16 16 Rate Blood Pressure 136/84 (mmHg) O2 Sat by Pulse 97 Oximetry 07/18/16 07/18/16 06:48 07:33 Temperature 98.3 F Pulse Rate 106 Respiratory 18 18 Rate Blood Pressure 127/74 (mmHg) O2 Sat by Pulse 95 Oximetry Oxygen Devices in Use Now: None Appearance: NAD, sitting up in a chair. Restless. Eyes: No Scleral Icterus, PERRLA Ears/Nose/Mouth/Throat: NL Teeth, Lips, Gums, Mucous Membranes Moist Neck: NL Appearance and Movements; NL JVP, Trachea Midline Respiratory: Symmetrical Chest Expansion and Respiratory Effort, Clear to Auscultation Cardiovascular: NL Sounds; No Murmurs; No JVD, RRR Abdominal: NL Sounds; No Tenderness; No Distention Extremities: No Edema Skin: No Rash or Ulcers Neurological: Alert and Oriented x 3, NL Muscle Strength and Tone Lines/Tubes/Other Access: Clean, Dry and Intact Peripheral IV - site benign Result Diagrams: 07/16/16 09:23 07/18/16 06:58 Assess/Plan/Problems-Billing Assessment: Mr. Frausto is a 56 yo male who presented to the emergency room after a fall to home and was found to have an acetabular fracture with intractable pain. - Patient Problems (1) Right acetabular fracture Code(s): S32.401A - UNSP FRACTURE OF RIGHT ACETABULUM, INIT FOR CLOS FX SNOMED Code(s): 23527738 Comment: - Pain continues to improve - Able to get up to a chair - Continue PT and pain control - Ortho input appreciated, advance to toe-touch weight bearing right LE - Will need to follow up with Ortho outpatient (2) Alcohol abuse Code(s): F10.10 - ALCOHOL ABUSE, UNCOMPLICATED SNOMED Code(s): 94296788 Comment: - Pt states he drinks 6 beers per day - History of delirium tremens - Continue WAM, has been scoring 1-7, 1 episode of 15 but upon reassessment scoring a 7 - Elevated LFTs, suspect r/t alcohol use (3) Urinary retention Code(s): R33.9 - RETENTION OF URINE, UNSPECIFIED SNOMED Code(s): 835654303 Comment: - Required urinary catheter, was removed this morning and is due to void - Suspect related to narcotics (4) Chronic back pain Code(s): M54.9 - DORSALGIA, UNSPECIFIED; G89.29 - OTHER CHRONIC PAIN SNOMED Code(s): 832205427 Comment: - Continue pain medication - Pt reports history of a back fracture in 1987 (5) HTN (hypertension) Code(s): I10 - ESSENTIAL (PRIMARY) HYPERTENSION SNOMED Code(s): 07451980 Comment: - Normotensive - Continue irbesartan (6) History of gout Code(s): Z87.39 - PERSONAL HISTORY OF DISEASES OF THE MS SYS AND CONN TISS SNOMED Code(s): 199120705 Comment: - Continue allopurinol (7) Anxiety and depression Code(s): F41.9 - ANXIETY DISORDER, UNSPECIFIED; F32.9 - MAJOR DEPRESSIVE DISORDER, SINGLE EPISODE, UNSPECIFIED SNOMED Code(s): 124480329 Comment: - Continue lorazepam and citalopram (8) DVT prophylaxis Code(s): [id number] - SNOMED Code(s): 245586213 Comment: - Continue SQ heparin (9) Full code status Code(s): Z78.9 - OTHER SPECIFIED HEALTH STATUS SNOMED Code(s): 549105275 Status and Disposition: Inpatient. Pt continues to have limited mobility due to pain. Discharge to home vs rehab. Pt is now detoxing from alcohol.
[2016-07-18] MEDS ORDERED: LORazepam TAB(*) 1 MG ONE (08:48)
[2016-07-18] MEDS: Folic Acid TAB* 1 MG PO SCH (08:52)
[2016-07-18] MEDS: Omeprazole CAP* 20 MG PO SCH (08:52)
[2016-07-18] MEDS: LORazepam TAB(*) 1 MG PO SCH (08:52)
[2016-07-18] MEDS: Multivitamins/Minerals TAB PO SCH (08:52)
[2016-07-18] MEDS: Losartan TAB* 25 MG PO SCH (08:53)
[2016-07-18] MEDS: Citalopram TAB* 20 MG PO SCH (08:53)
[2016-07-18] MEDS: Allopurinol TAB* 300 MG PO SCH (08:53)
[2016-07-18] MEDS: Thiamine TAB* 100 MG TAB PO SCH (08:53)
[2016-07-18] MEDS: Docusate CAP* 100 MG PO SCH ×2 (08:54→20:46)
[2016-07-19] MEDS: HYDROmorphone* 1 MG/ML 1 ML SYR IV PRN ×3 (01:11→22:31)
[2016-07-19] MEDS: oxyCODONE TAB* 5 MG TAB PO PRN ×3 (04:45→16:59)
[2016-07-19] MEDS: Heparin VIAL(*) 5000 UNITS/ML VIAL (FIVE THOUSAND) SUBCUT SCH ×3 (06:02→21:24)
[2016-07-19] MEDS ORDERED: Cyclobenzaprine TAB* 10 MG PO ONE ×2 (07:00→17:50)
--- NOTE | 2016-07-19 07:56 | PN ---
Subjective Date of Service: 07/19/16 Interval History: Patient seen and examined at bedside. Denies fever, chills, shortness of breath , chest discomfort, N/V/D, numbness or tingling. Pt states that he has been having a lot of vivid dreams recently (started prior to this admission). Reports some muscle spasms in his leg. He feels like the pain is getting better each day and he is able to get around better with each day. Denies difficulty urinating since urinary catheter was removed yesterday morning. Family History: Unchanged from Admission Social History: Unchanged from Admission Past Medical History: Unchanged from Admission Objective Active Medications: Acetaminophen (Tylenol Tab*) 650 mg PO Q6H PRN Reason: FEVER/PAIN Allopurinol (Zyloprim Tab*) 300 mg PO DAILY [facility] Citalopram Hydrobromide (Celexa Tab*) 20 mg PO DAILY [facility] Docusate Sodium (Colace Cap*) 200 mg PO BID [facility] Folic Acid (Folvite Tab*) 1 mg PO DAILY [facility] Heparin Sodium (Porcine) (Heparin Vial(*)) 5,000 units SUBCUT Q8HR [facility] Hydromorphone HCl (Dilaudid Iv*) 1 mg IV Q2H PRN Reason: PAIN Lorazepam (Ativan Tab(*)) 0 mg PO .PER WAM SCORE [facility] Reason: Protocol Losartan Potassium (Cozaar Tab*) 100 mg PO DAILY [facility] Magnesium Hydroxide (Milk Of Magnesia Liq*) 30 ml PO Q6H PRN Reason: CONSTIPATION Melatonin (Melatonin (Nf)) 3 mg PO BEDTIME PRN; Protocol Reason: Sleep Multivitamins/Minerals (Theragran/Minerals Tab*) 1 tab PO DAILY [facility] Omeprazole (Prilosec Cap*) 20 mg PO DAILY [facility] Ondansetron HCl (Zofran Inj*) 4 mg IV Q6H PRN Reason: NAUSEA Oxycodone HCl (Roxycodone Tab*) 5 mg PO Q4H PRN Reason: PAIN Oxycodone HCl (Roxycodone Tab*) 10 mg PO Q4H PRN Reason: PAIN - SEVERE Thiamine HCl (Vitamin B-1 Tab*) 100 mg PO DAILY [facility] Tramadol HCl (Ultram*) 50 mg PO Q6H PRN Reason: PAIN Vital Signs 07/18/16 07/18/16 07/18/16 11:47 15:15 16:48 Temperature 98.1 F 98.7 F Pulse Rate 105 123 Respiratory 18 16 16 Rate Blood Pressure 130/76 150/89 (mmHg) O2 Sat by Pulse 98 96 Oximetry 07/18/16 07/18/16 07/18/16 20:33 20:45 22:59 Temperature 98.5 F Pulse Rate 105 Respiratory 18 18 18 Rate Blood Pressure 133/80 (mmHg) O2 Sat by Pulse 96 Oximetry 07/18/16 07/19/16 07/19/16 23:27 00:59 01:11 Temperature 98.3 F Pulse Rate 105 Respiratory 18 18 18 Rate Blood Pressure 140/89 (mmHg) O2 Sat by Pulse 98 Oximetry 07/19/16 07/19/16 07/19/16 02:11 03:04 04:45 Temperature 98.3 F Pulse Rate 115 Respiratory 16 18 18 Rate Blood Pressure 133/72 (mmHg) O2 Sat by Pulse 97 Oximetry Oxygen Devices in Use Now: None Appearance: NAD, sitting up in a chair Eyes: No Scleral Icterus, PERRLA Ears/Nose/Mouth/Throat: NL Teeth, Lips, Gums, Mucous Membranes Moist Respiratory: Symmetrical Chest Expansion and Respiratory Effort, Clear to Auscultation Cardiovascular: NL Sounds; No Murmurs; No JVD, RRR Abdominal: NL Sounds; No Tenderness; No Distention Extremities: No Edema Skin: No Rash or Ulcers Neurological: Alert and Oriented x 3, NL Muscle Strength and Tone Lines/Tubes/Other Access: Clean, Dry and Intact Peripheral IV - site benign Nutrition: Taking PO's Result Diagrams: 07/16/16 09:23 07/18/16 06:58 Assess/Plan/Problems-Billing Assessment: Mr. Frausto is a 56 yo male who presented to the emergency room after a fall to home and was found to have an acetabular fracture with intractable pain. - Patient Problems (1) Right acetabular fracture Code(s): S32.401A - UNSP FRACTURE OF RIGHT ACETABULUM, INIT FOR CLOS FX SNOMED Code(s): 72632035 Comment: - Pain continues to improve - Able to get up to a chair with assistance - Continue PT and pain control - Ortho input appreciated, advance to toe-touch weight bearing right LE - Will need to follow up with Ortho outpatient (2) Tachycardia Code(s): R00.0 - TACHYCARDIA, UNSPECIFIED SNOMED Code(s): 0484619 Comment: - Suspect related to possible alcohol withdrawal and pain (3) Alcohol abuse Code(s): F10.10 - ALCOHOL ABUSE, UNCOMPLICATED SNOMED Code(s): 42019310 Comment: - Unclear how much Pt drinks daily - History of delirium tremens - Continue WAM, has been scoring 6-10, has not been receiving Ativan per 's request - Elevated LFTs, suspect r/t alcohol use (4) Urinary retention Code(s): R33.9 - RETENTION OF URINE, UNSPECIFIED SNOMED Code(s): 822203077 Comment: - Resolved - Required urinary catheter, now voiding without difficulty - Suspect related to narcotics (5) Chronic back pain Code(s): M54.9 - DORSALGIA, UNSPECIFIED; G89.29 - OTHER CHRONIC PAIN SNOMED Code(s): 081588529 Comment: - Continue pain medication - Pt reports history of a back fracture in 1987 (6) HTN (hypertension) Code(s): I10 - ESSENTIAL (PRIMARY) HYPERTENSION SNOMED Code(s): 54126539 Comment: - Normotensive - Continue Losartan (autosub for irbesartan) (7) History of gout Code(s): Z87.39 - PERSONAL HISTORY OF DISEASES OF THE MS SYS AND CONN TISS SNOMED Code(s): 450505377 Comment: - Continue allopurinol (8) Anxiety and depression Code(s): F41.9 - ANXIETY DISORDER, UNSPECIFIED; F32.9 - MAJOR DEPRESSIVE DISORDER, SINGLE EPISODE, UNSPECIFIED SNOMED Code(s): 080658786 Comment: - Continue lorazepam and citalopram (9) DVT prophylaxis Code(s): [id number] - SNOMED Code(s): 824440620 Comment: - Continue SQ heparin (10) Full code status Code(s): Z78.9 - OTHER SPECIFIED HEALTH STATUS SNOMED Code(s): 240521047 Status and Disposition: Inpatient. Pt continues to have limited mobility due to pain. Discharge to home vs rehab.
[2016-07-19] MEDS: Losartan TAB* 25 MG PO SCH (08:11)
[2016-07-19] MEDS: Folic Acid TAB* 1 MG PO SCH (08:11)
[2016-07-19] MEDS: Thiamine TAB* 100 MG TAB PO SCH (08:11)
[2016-07-19] MEDS: Allopurinol TAB* 300 MG PO SCH (08:11)
[2016-07-19] MEDS: Docusate CAP* 100 MG PO SCH ×2 (08:11→21:16)
[2016-07-19] MEDS: Multivitamins/Minerals TAB PO SCH (08:11)
[2016-07-19] MEDS: traMADol TAB* 50 MG PO PRN ×2 (08:12→21:16)
[2016-07-19] MEDS: LORazepam TAB(*) 1 MG PO SCH (08:12)
[2016-07-19] MEDS: Omeprazole CAP* 20 MG PO SCH (08:12)
[2016-07-19] MEDS: Citalopram TAB* 20 MG PO SCH (08:12)
[2016-07-20] MEDS: traMADol TAB* 50 MG PO PRN ×3 (04:19→21:11)
[2016-07-20] MEDS: Heparin VIAL(*) 5000 UNITS/ML VIAL (FIVE THOUSAND) SUBCUT SCH ×3 (05:40→21:11)
[2016-07-20] MEDS: Citalopram TAB* 20 MG PO SCH (08:33)
[2016-07-20] MEDS: Allopurinol TAB* 300 MG PO SCH (08:33)
[2016-07-20] MEDS: Omeprazole CAP* 20 MG PO SCH (08:33)
[2016-07-20] MEDS: Folic Acid TAB* 1 MG PO SCH (08:33)
[2016-07-20] MEDS: Thiamine TAB* 100 MG TAB PO SCH (08:33)
[2016-07-20] MEDS: oxyCODONE TAB* 5 MG TAB PO PRN ×3 (08:33→22:07)
[2016-07-20] MEDS: Losartan TAB* 25 MG PO SCH (08:33)
[2016-07-20] MEDS: Multivitamins/Minerals TAB PO SCH (08:33)
[2016-07-20] MEDS: Docusate CAP* 100 MG PO SCH ×2 (08:33→21:09)
--- NOTE | 2016-07-20 09:44 | PN ---
Progress Note - Progress Note SOAP: Subjective: []Patient seen OOB in chair. Much more comfortable today. Overall pain more tolerable. Thinks he will definitely require short term rehab before returning home. Objective: [] Vital Signs Temp 98.3 F 07/20/16 07:51 Pulse 94 07/20/16 07:51 Resp 18 07/20/16 08:33 BP 126/81 07/20/16 07:51 Pulse Ox 96 07/20/16 04:09 Intake & Output 07/19/16 07/20/16 07/20/16 18:59 06:59 18:59 Intake Total 1360 1160 Output Total 275 775 0 Balance 1085 385 0 Intake: Oral 1360 1160 Output: Urine 275 775 0 Other: Estimated Void Medium # Voids 1 Right groin pain with motion hip, improving neuro intact RLE Calf non tender Assessment: []Right acetabulum fx, comminuted, non displaced Plan: []PT/OT TTWB RLE Short term rehab- await bed offer f/u with Dr. Hannah 10- 14 days after discharge.
--- NOTE | 2016-07-20 10:58 | PN ---
Subjective Date of Service: 07/20/16 Interval History: Patient reports his pain is controlled at rest but with any movement he has significant pain 6-8/10; reports muscle spasms. Denies numbness/tingling. Overall he states this is better than yesterday. Reports he has been OOB to chair. Otherwise he is feeling ok. Denies fever or chills. Denies detox symptoms. No N/V/D. reports good appetite. Family History: Unchanged from Admission Social History: Unchanged from Admission Past Medical History: Unchanged from Admission Objective Active Medications: Acetaminophen (Tylenol Tab*) 650 mg PO Q6H PRN PRN Reason: FEVER/PAIN Last Admin: 07/17/16 21:08 Dose: 650 mg Allopurinol (Zyloprim Tab*) 300 mg PO DAILY [facility] Last Admin: 07/20/16 08:33 Dose: 300 mg Citalopram Hydrobromide (Celexa Tab*) 20 mg PO DAILY [facility] Last Admin: 07/20/16 08:33 Dose: 20 mg Docusate Sodium (Colace Cap*) 200 mg PO BID [facility] Last Admin: 07/20/16 08:33 Dose: 200 mg Folic Acid (Folvite Tab*) 1 mg PO DAILY [facility] Last Admin: 07/20/16 08:33 Dose: 1 mg Heparin Sodium (Porcine) (Heparin Vial(*)) 5,000 units SUBCUT Q8HR [facility] Last Admin: 07/20/16 05:40 Dose: 5,000 units Hydromorphone HCl (Dilaudid Iv*) 1 mg IV Q2H PRN PRN Reason: PAIN Last Admin: 07/19/16 22:31 Dose: 1 mg Lorazepam (Ativan Tab(*)) 0 mg PO .PER WAM SCORE [facility] PRN Reason: Protocol Last Admin: 07/19/16 08:12 Dose: 2 mg Losartan Potassium (Cozaar Tab*) 100 mg PO DAILY [facility] Last Admin: 07/20/16 08:33 Dose: 100 mg Magnesium Hydroxide (Milk Of Magnesia Liq*) 30 ml PO Q6H PRN PRN Reason: CONSTIPATION Melatonin (Melatonin (Nf)) 3 mg PO BEDTIME PRN; Protocol PRN Reason: Sleep Last Admin: 07/16/16 01:22 Dose: 3 mg Multivitamins/Minerals (Theragran/Minerals Tab*) 1 tab PO DAILY [facility] Last Admin: 07/20/16 08:33 Dose: 1 tab Omeprazole (Prilosec Cap*) 20 mg PO DAILY [facility] Last Admin: 07/20/16 08:33 Dose: 20 mg Ondansetron HCl (Zofran Inj*) 4 mg IV Q6H PRN PRN Reason: NAUSEA Oxycodone HCl (Roxycodone Tab*) 5 mg PO Q4H PRN PRN Reason: PAIN Last Admin: 07/16/16 09:07 Dose: 5 mg Oxycodone HCl (Roxycodone Tab*) 10 mg PO Q4H PRN PRN Reason: PAIN - SEVERE Last Admin: 07/20/16 08:33 Dose: 10 mg Thiamine HCl (Vitamin B-1 Tab*) 100 mg PO DAILY [facility] Last Admin: 07/20/16 08:33 Dose: 100 mg Tramadol HCl (Ultram*) 50 mg PO Q6H PRN PRN Reason: PAIN Last Admin: 07/20/16 04:19 Dose: 50 mg Vital Signs 07/19/16 07/19/16 07/19/16 11:41 12:34 13:41 Temperature 98.4 F Pulse Rate 104 Respiratory 18 16 18 Rate Blood Pressure 134/77 (mmHg) O2 Sat by Pulse 97 Oximetry 07/19/16 07/19/16 07/19/16 15:12 16:59 18:15 Temperature 98.0 F Pulse Rate 102 Respiratory 16 18 18 Rate Blood Pressure 144/84 (mmHg) O2 Sat by Pulse 97 Oximetry 07/19/16 07/19/16 07/19/16 18:59 20:15 20:50 Temperature 98.6 F Pulse Rate 97 Respiratory 18 16 16 Rate Blood Pressure 152/90 (mmHg) O2 Sat by Pulse 99 Oximetry 07/19/16 07/19/16 07/19/16 21:15 21:16 22:31 Temperature Pulse Rate Respiratory 16 16 16 Rate Blood Pressure (mmHg) O2 Sat by Pulse Oximetry 07/19/16 07/19/16 07/20/16 23:16 23:31 00:15 Temperature 99.0 F Pulse Rate 94 Respiratory 16 16 16 Rate Blood Pressure 142/78 (mmHg) O2 Sat by Pulse 97 Oximetry 07/20/16 07/20/16 07/20/16 04:09 04:19 06:19 Temperature 98.3 F Pulse Rate 88 Respiratory 16 16 16 Rate Blood Pressure 131/76 (mmHg) O2 Sat by Pulse 96 Oximetry 07/20/16 07/20/16 07/20/16 07:51 08:00 08:33 Temperature 98.3 F Pulse Rate 94 Respiratory 18 18 Rate Blood Pressure 126/81 (mmHg) O2 Sat by Pulse Oximetry 07/20/16 10:33 Temperature Pulse Rate Respiratory 18 Rate Blood Pressure (mmHg) O2 Sat by Pulse Oximetry Oxygen Devices in Use Now: None Appearance: 56 yo male resting in bed - A+O x3 - appears to be in pain with LE movement Eyes: No Scleral Icterus, PERRLA Ears/Nose/Mouth/Throat: NL Teeth, Lips, Gums, Mucous Membranes Moist Neck: NL Appearance and Movements; NL JVP Respiratory: Symmetrical Chest Expansion and Respiratory Effort, Clear to Auscultation Cardiovascular: NL Sounds; No Murmurs; No JVD, RRR, No Edema Abdominal: NL Sounds; No Tenderness; No Distention Extremities: No Edema, No Clubbing, Cyanosis, - - guarded with right LE. + sensation, no numbness - has limited ROM 2nd to pain. Skin: No Rash or Ulcers, No Nodules or Sclerosis Neurological: Alert and Oriented x 3, NL Sensation, NL Muscle Strength and Tone Lines/Tubes/Other Access: Clean, Dry and Intact Peripheral IV Nutrition: Taking PO's Result Diagrams: 07/16/16 09:23 07/18/16 06:58 Assess/Plan/Problems-Billing Assessment: Mr. Frausto is a 56 yo male who presented to the emergency room after a fall to home and was found to have an acetabular fracture with intractable pain. - Patient Problems (1) Right acetabular fracture Comment: - Pain continues to improve - Able to get up to a chair with assistance - Continue PT and pain control - Ortho input appreciated, advance to toe-touch weight bearing right LE, no surgery required. - Will need to follow up with Ortho outpatient - Plan for subacute rehab (2) Tachycardia Comment: - Resolved. Suspect related to possible alcohol withdrawal and pain (3) Urinary retention Comment: - Resolved - Required urinary catheter, now voiding without difficulty - Suspect related to narcotics (4) Chronic back pain Comment: - Continue pain medication - Pt reports history of a back fracture in 1987 (5) Alcohol abuse Comment: - Unclear how much Pt drinks daily - History of delirium tremens - Continue WAM, has been scoring 4 for mild tremor, has not been receiving Ativan per 's request. No hx of seizures - Elevated LFTs, suspect r/t alcohol use (6) Transaminitis Comment: - stable. Suspect 2nd to ETOH abuse. Send Hepatitis panel. (7) HTN (hypertension) Comment: - Normotensive - Continue Losartan (autosub for irbesartan) (8) History of gout Comment: - Continue allopurinol (9) DVT prophylaxis Comment: - Continue SQ heparin (10) Full code status Status and Disposition: Inpatient. Pt continues to have limited mobility due to pain. Discharge to rehab when bed is available.
[2016-07-21] MEDS: HYDROmorphone* 1 MG/ML 1 ML SYR IV PRN (01:44)
[2016-07-21] MEDS: oxyCODONE TAB* 5 MG TAB PO PRN ×3 (03:48→12:43)
[2016-07-21] MEDS: traMADol TAB* 50 MG PO PRN ×2 (05:35→11:37)
[2016-07-21] MEDS: Heparin VIAL(*) 5000 UNITS/ML VIAL (FIVE THOUSAND) SUBCUT SCH (05:35)
[2016-07-21 07:24] LABS: Hematocrit 31 % (42-52); Hemoglobin 10.6 g/dl (14.0-18.0); Mean Corpuscular HGB Conc 35 g/dl (31-36); Mean Corpuscular Hemoglobin 35 pg (27-31); Mean Corpuscular Volume 102 fL (80-94); Mean Platelet Volume 7 um3 (7.4-10.4); Red Cell Distribution Width 15 % (10.5-15); White Blood Count 5.4 10^3/ul (3.5-10.8)
[2016-07-21 07:44] LABS: Albumin 3.7 g/dL (3.2-5.2); BUN/Creatinine Ratio 14.9 (8-20); Calcium 9.3 mg/dL (8.6-10.3); EGFR African American 157.8 (>60); EGFR Non-African American 122.7 (>60); Globulin 2.8 g/dL (2-4); Potassium 3.6 mmol/L (3.5-5.0); Total Bilirubin 0.9 mg/dL (0.2-1.0); Total Protein 6.5 g/dL (6.4-8.9)
[2016-07-21] MEDS: Allopurinol TAB* 300 MG PO SCH (08:44)
[2016-07-21] MEDS: Docusate CAP* 100 MG PO SCH (08:44)
[2016-07-21] MEDS: Omeprazole CAP* 20 MG PO SCH (08:44)
[2016-07-21] MEDS: Citalopram TAB* 20 MG PO SCH (08:44)
[2016-07-21] MEDS: Losartan TAB* 25 MG PO SCH (08:44)
[2016-07-21] MEDS: Folic Acid TAB* 1 MG PO SCH (08:46)
[2016-07-21] MEDS: Thiamine TAB* 100 MG TAB PO SCH (08:46)
[2016-07-21] MEDS: Multivitamins/Minerals TAB PO SCH (08:46)
--- NOTE | 2016-07-21 09:28 | PN ---
Progress Note - Progress Note SOAP: Subjective: []Patient seen sitting at edge of bed, getting dressed this am. Groin pain managed, c/o mild to moderate muscle aches right side lower lumbar musculature. Objective: [] Vital Signs Temp 98.3 F 07/21/16 07:22 Pulse 81 07/21/16 07:22 Resp 16 07/21/16 08:43 BP 130/82 07/21/16 07:22 Pulse Ox 96 07/21/16 07:22 Intake & Output 07/20/16 07/21/16 07/21/16 18:59 06:59 18:59 Intake Total 825 2660 Output Total 900 1250 Balance -75 1410 Intake: Oral 825 2660 Output: Urine 900 1250 Other: # Bowel Movements 1 Laboratory Results - last 24 hr 07/21/16 07/21/16 06:39 06:39 WBC 5.4 RBC 3.00 L Hgb 10.6 L Hct 31 L MCV 102 H MCH 35 H MCHC 35 RDW 15 Plt Count 197 MPV 7 L Neut % (Auto) 45.8 Lymph % (Auto) 30.7 [place] % (Auto) 17.2 H Eos % (Auto) 5.2 Baso % (Auto) 1.1 Absolute Neuts (auto) 2.5 Absolute Lymphs (auto) 1.7 Absolute Monos (auto) 0.9 H Absolute Eos (auto) 0.3 Absolute Basos (auto) 0.1 Absolute Nucleated RBC 0 Nucleated RBC % 0.1 Sodium 134 Potassium 3.6 Chloride 97 L Carbon Dioxide 31 Anion Gap 6 BUN 10 Creatinine 0.67 Est GFR ( Amer) 157.8 Est GFR (Non-Af Amer) 122.7 BUN/Creatinine Ratio 14.9 Glucose 103 H Calcium 9.3 Total Bilirubin 0.90 AST 33 ALT 23 Alkaline Phosphatase 199 H Total Protein 6.5 Albumin 3.7 Globulin 2.8 Albumin/Globulin Ratio 1.3 ortho exam unchanged, RLE neuro intact Assessment: []non displaced Right acetabulum fracture Lumbar strain, remote hx T-12 compression fx Plan: []Continue TTWB RLE with PT/OT Await rehab bed offer
[2016-07-21 11:36] VITALS: BP 112/71
--- NOTE | 2016-07-21 12:16 | DCNOTE ---
Subjective Date of Service: 07/21/16 Interval History: patient reports he "feel fine other than right hip pain when moving". Overall states he feels better but continues to struggle with ambulation. Denies numbness or tingling Family History: Unchanged from Admission Social History: Unchanged from Admission Past Medical History: Unchanged from Admission Objective Active Medications: Acetaminophen (Tylenol Tab*) 650 mg PO Q6H PRN PRN Reason: FEVER/PAIN Last Admin: 07/17/16 21:08 Dose: 650 mg Allopurinol (Zyloprim Tab*) 300 mg PO DAILY [facility] Last Admin: 07/21/16 08:44 Dose: 300 mg Citalopram Hydrobromide (Celexa Tab*) 20 mg PO DAILY [facility] Last Admin: 07/21/16 08:44 Dose: 20 mg Docusate Sodium (Colace Cap*) 200 mg PO BID [facility] Last Admin: 07/21/16 08:44 Dose: 200 mg Folic Acid (Folvite Tab*) 1 mg PO DAILY [facility] Last Admin: 07/21/16 08:46 Dose: 1 mg Heparin Sodium (Porcine) (Heparin Vial(*)) 5,000 units SUBCUT Q8HR [facility] Last Admin: 07/21/16 05:35 Dose: 5,000 units Hydromorphone HCl (Dilaudid Iv*) 1 mg IV Q2H PRN PRN Reason: PAIN Last Admin: 07/21/16 01:44 Dose: 1 mg Lorazepam (Ativan Tab(*)) 0 mg PO .PER WAM SCORE [facility] PRN Reason: Protocol Last Admin: 07/19/16 08:12 Dose: 2 mg Losartan Potassium (Cozaar Tab*) 100 mg PO DAILY [facility] Last Admin: 07/21/16 08:44 Dose: 100 mg Magnesium Hydroxide (Milk Of Magnesia Liq*) 30 ml PO Q6H PRN PRN Reason: CONSTIPATION Melatonin (Melatonin (Nf)) 3 mg PO BEDTIME PRN; Protocol PRN Reason: Sleep Last Admin: 07/16/16 01:22 Dose: 3 mg Multivitamins/Minerals (Theragran/Minerals Tab*) 1 tab PO DAILY [facility] Last Admin: 07/21/16 08:46 Dose: 1 tab Omeprazole (Prilosec Cap*) 20 mg PO DAILY [facility] Last Admin: 07/21/16 08:44 Dose: 20 mg Ondansetron HCl (Zofran Inj*) 4 mg IV Q6H PRN PRN Reason: NAUSEA Oxycodone HCl (Roxycodone Tab*) 5 mg PO Q4H PRN PRN Reason: PAIN Last Admin: 07/16/16 09:07 Dose: 5 mg Oxycodone HCl (Roxycodone Tab*) 10 mg PO Q4H PRN PRN Reason: PAIN - SEVERE Last Admin: 07/21/16 08:43 Dose: 10 mg Thiamine HCl (Vitamin B-1 Tab*) 100 mg PO DAILY [facility] Last Admin: 07/21/16 08:46 Dose: 100 mg Tramadol HCl (Ultram*) 50 mg PO Q6H PRN PRN Reason: PAIN Last Admin: 07/21/16 11:37 Dose: 50 mg Vital Signs 07/20/16 07/20/16 07/20/16 14:00 15:22 15:38 Temperature 98.4 F Pulse Rate 91 Respiratory 18 18 16 Rate Blood Pressure 118/72 (mmHg) O2 Sat by Pulse 99 Oximetry 07/20/16 07/20/16 07/20/16 17:15 19:33 20:00 Temperature 98.6 F Pulse Rate 101 Respiratory 18 16 17 Rate Blood Pressure 146/78 (mmHg) O2 Sat by Pulse Oximetry 07/20/16 07/20/16 07/20/16 21:11 22:07 23:11 Temperature Pulse Rate Respiratory 17 17 16 Rate Blood Pressure (mmHg) O2 Sat by Pulse Oximetry 07/20/16 07/21/16 07/21/16 23:19 00:00 00:07 Temperature 98.8 F Pulse Rate 96 Respiratory 16 16 16 Rate Blood Pressure 140/72 (mmHg) O2 Sat by Pulse 98 Oximetry 07/21/16 07/21/16 07/21/16 01:44 02:44 03:48 Temperature Pulse Rate Respiratory 17 16 16 Rate Blood Pressure (mmHg) O2 Sat by Pulse Oximetry 07/21/16 07/21/16 07/21/16 03:49 04:00 05:35 Temperature 98.0 F Pulse Rate 82 Respiratory 16 16 16 Rate Blood Pressure 146/88 (mmHg) O2 Sat by Pulse 99 Oximetry 07/21/16 07/21/16 07/21/16 05:48 07:08 07:22 Temperature 98.3 F Pulse Rate 81 Respiratory 16 16 16 Rate Blood Pressure 130/82 (mmHg) O2 Sat by Pulse 96 Oximetry 07/21/16 07/21/16 07/21/16 07:35 08:43 11:14 Temperature 98.2 F Pulse Rate 96 Respiratory 16 16 15 Rate Blood Pressure 112/71 (mmHg) O2 Sat by Pulse 98 Oximetry 07/21/16 11:37 Temperature Pulse Rate Respiratory 16 Rate Blood Pressure (mmHg) O2 Sat by Pulse Oximetry Oxygen Devices in Use Now: None Appearance: 56 yo male sitting up in a chair in NAD A+O x3 Eyes: No Scleral Icterus, PERRLA Ears/Nose/Mouth/Throat: NL Teeth, Lips, Gums, Mucous Membranes Moist Neck: NL Appearance and Movements; NL JVP Respiratory: Symmetrical Chest Expansion and Respiratory Effort, Clear to Auscultation Cardiovascular: NL Sounds; No Murmurs; No JVD, RRR, No Edema Abdominal: NL Sounds; No Tenderness; No Distention Extremities: No Edema, No Clubbing, Cyanosis, - - right hip pain with movement, guarded with ROM, no edema, pink, + pulses. Skin: No Rash or Ulcers, No Nodules or Sclerosis Neurological: Alert and Oriented x 3 Lines/Tubes/Other Access: Clean, Dry and Intact Peripheral IV Nutrition: Taking PO's Result Diagrams: 07/21/16 06:39 07/21/16 06:39 Assess/Plan/Problems-Billing Assessment: Mr. Frausto is a 56 yo male who presented to the emergency room after a fall to home and was found to have an acetabular fracture with intractable pain. - Patient Problems (1) Right acetabular fracture Comment: - Pain continues to improve - Able to get up to a chair with assistance - Continue PT and pain control - Ortho input appreciated, advance to toe-touch weight bearing right LE, no surgery required. - Will need to follow up with Ortho outpatient - Plan for subacute rehab (2) Tachycardia Comment: - Resolved. Suspect related to possible alcohol withdrawal and pain (3) Urinary retention Comment: - Resolved - Required urinary catheter, now voiding without difficulty - Suspect related to narcotics (4) Chronic back pain Comment: - Continue pain medication - Pt reports history of a back fracture in 1987 (5) Alcohol abuse Comment: - Unclear how much Pt drinks daily - no detox symptoms - History of delirium tremens - Continue WAM, has been scoring 4 for mild tremor, has not been receiving Ativan per 's request. No hx of seizures - Elevated LFTs, suspect r/t alcohol use (6) Transaminitis Comment: - stable. Suspect 2nd to ETOH abuse. Hepatitis panel pending; plan to f/u with PCP (7) HTN (hypertension) Comment: - Normotensive - Continue Losartan (autosub for irbesartan) (8) History of gout Comment: - Continue allopurinol (9) DVT prophylaxis Comment: - Continue SQ heparin (10) Full code status Status and Disposition: Inpatient. Pt continues to have limited mobility due to pain. Plan for subacute at [facility] today
--- NOTE | 2016-07-21 13:25 | DS ---
DATE OF ADMISSION: 07/15/2016. DATE OF DISCHARGE: 07/21/2016. PROVIDER: Brandon Gutierrez NP. ATTENDING PHYSICIAN: Dr. Gaffney*(report dictated by Brandon Gutierrez NP). PRIMARY CARE PROVIDER: Dr. Davis. ORTHOPEDIC SURGEON: Dr. Hannah. PRIMARY DIAGNOSES: 1. Right acetabular fracture. 2. Transaminitis, mild, thought to be secondary to alcohol abuse. 3. Alcohol abuse. SECONDARY DIAGNOSES: 1. Hypertension. 2. Gout. 3. Anxiety. 4. Depression. 5. History of delirium tremens secondary to alcohol abuse. CODE STATUS: Full code. DISCHARGE MEDICATIONS: 1. Allopurinol 300 mg p.o. daily. 2. Acetaminophen 650 mg p.o. q.4 hours prn. 3. Colchicine 0.6 mg p.o. daily prn. 4. Fish oil one cap p.o. daily. 5. Celexa 20 mg p.o. daily. 6. Irbesartan 300 mg p.o. daily. 7. Glucosamine-Chondroitin (Osteo Bi-Flex regular) 250-200 mg one tab p.o. b.i.d. 8. Multivitamins with minerals one tab p.o. daily. 9. Thiamine 100 mg p.o. daily. 10. Omeprazole 20 mg p.o. daily. 11. Mega[employer] [place]-3 Krill oil 500 mg daily. 12. Oxycodone 5 mg p.o. q.6 hours prn, hold for sedation or 10 mg p.o. q.6 hours prn, hold for sedation. HISTORY OF PRESENT ILLNESS AND HOSPITAL COURSE: Please see history and physical by Dr. Tay for full admission details. In summary, this is a 56-year-old male who was getting out of his car on 07/15/2016 when he slipped on ice and fell with immediate right hip pain. He was able to stand, but was unable to walk and he came to the emergency department where a CAT scan of the right lower extremity revealed a moderately comminuted nondisplaced right acetabular fracture with intact femur. The patient was admitted to the Hospitalist Service. He was seen in consultation by orthopedic surgeon, Dr. Hannah, who states the patient is not a surgical candidate and who recommends toe touch weightbearing with a walker. The patient has a history of alcoholism. He has a history of delirium tremens. At the time of admission, he reported he drinks six beers a day. He was initiated on a WAM protocol in which he was receiving Ativan, screening positive for tremors which have since resolved. The patient currently is scoring low on the WAM protocol, not requiring any Ativan in the last 24 hours. The patient is noted to have mild transaminitis with an AST of 46, up to 52 and which has resolved today to 33. Per , he has a known history of elevated liver enzymes in the past. A hepatitis panel was sent and is pending at the time of dictation. The patient has done well throughout his hospitalization. He has remained hemodynamically stable and afebrile with one noted temperature of 100.6 the day after admission. Otherwise, the patient has been doing very well, progressing from initially at admission being nonweightbearing to toe touch weightbearing and has done well with a walker. Plan for subacute rehab and follow-up with the Orthopedic team in [address] Hannah. DISCHARGE PLAN: 1. Discharge to [facility] for subacute rehab. 2. Follow-up with primary care provider after subacute rehab to check hepatitis panel. I have low suspicion for this due to the patient's history of alcoholism and his LFT's now have normalized. The patient does not think he has been checked for hepatitis C which is within the guidelines of his age, so this should be followed up by the primary care provider. 3. Follow-up with Dr. Hannah in 10 to 14 days. The patient was instructed that he needs to make this appointment himself. 4. Stable for discharge. TIME SPENT: Approximately 60 minutes were spent on this discharge. BRANDON GUTIERREZ NP CC: Dr. Davis; Dr. Hannah * [id number]/[facility] #: [id number] [place]
== END 2016-07-21 13:05 | DRG 341 ==
LOC: ED 16:39 → INTOOBSV 22:42 → SSU 22:42 → OBSVTOIN 07-16 11:08 → SSU 07-18 07:44
PROVIDERS: ADMIT Hospitalist; ATTEND Internal Medicine
DX: S32.474A Nondisplaced fracture of medial wall of right acetabulum, initial encounter for closed fracture (principal); I10 Essential (primary) hypertension; W00.0XXA Fall on same level due to ice and snow, initial encounter; Y92.9 Unspecified place or not applicable; M10.9 Gout, unspecified; F32.9 Major depressive disorder, single episode, unspecified; K21.9 Gastro-esophageal reflux disease without esophagitis; R74.0 Nonspecific elevation of levels of transaminase and lactic acid dehydrogenase [LDH]; M48.56XD Collapsed vertebra, not elsewhere classified, lumbar region, subsequent encounter for fracture with routine healing; R33.0 Drug induced retention of urine; F10.20 Alcohol dependence, uncomplicated; T40.605A Adverse effect of unspecified narcotics, initial encounter; Y92.230 Patient room in hospital as the place of occurrence of the external cause; Z79.1 Long term (current) use of non-steroidal anti-inflammatories (NSAID); Z79.899 Other long term (current) drug therapy
CPT/HCPCS: 36415; 72131; 80048; 80053; 80074; 85025; 85027; 85610; A9270-GY; J1170; J1644; J2060; J2270; J2405

== ENCOUNTER 2020-03-26 09:23 | Inpatient (IN) ==
[2020-03-26] MEDS ORDERED: NS 0.9% 1000 ml BAG 1,000 ML IV ONE ×3 (09:42→13:41)
[2020-03-26 10:00] LABS: ABS Lymphocytes 0.5 10^3/ul (1.0-4.8); ABS Monocytes 0.7 10^3/ul (0-0.8); ABS Neutrophils 6.1 10^3/ul (1.5-7.7); Hematocrit 40 % (42-52); Hemoglobin 13.9 g/dL (14.0-18.0); Lymphocyte % 6.3 %; Mean Corpuscular HGB Conc 34 g/dL (31-36); Mean Corpuscular Hemoglobin 34 pg (27-31); Mean Corpuscular Volume 98 fL (80-94); Mean Platelet Volume 7.6 fL (7.4-10.4); Nucleated Red Blood Cells % 0.1; Platelet Count 101 10^3/uL (150-450); Red Blood Count 4.11 10^6 /uL (4.18-5.48); Red Cell Distribution Width 17 % (10-15); White Blood Count 7.3 10^3/uL (3.5-10.8)
[2020-03-26 10:15] LABS: Albumin 3.2 g/dL (3.2-5.2); BUN/Creatinine Ratio 9.3 (8-20); Calcium 8.4 mg/dL (8.6-10.3); EGFR African American 95.9 (>60); EGFR Non-African American 79.2 (>60); Magnesium 1.3 mg/dL (1.9-2.7); Total Protein 6.4 g/dL (6.4-8.9)
[2020-03-26 10:16] LABS: Globulin 3.2 g/dL (2-4); Total Bilirubin 2.2 mg/dL (0.2-1.0)
[2020-03-26] MEDS ORDERED: Magnesium Sulfate 2 gm BAG 2 GM/50 ML BAG IVPB ONE (10:21)
[2020-03-26 10:57] LABS: TSH Ultra Thyroid Stim Horm 2.69 mcIU/mL (0.34-5.60)
[2020-03-26 11:43] LABS: Potassium 3.7 mmol/L (3.5-5.0)
[2020-03-26] MEDS ORDERED: Morphine 4 MG/ML VIAL (1 ml) IV ONE (11:48)
[2020-03-26] MEDS ORDERED: Ondansetron 4 mg VIAL 2 MG/ML 2 ml VIAL IV ONE (11:48)
[2020-03-26] MEDS ORDERED: Diazepam 2 mg TAB (NF) PO ONE (12:24)
[2020-03-26] MEDS ORDERED: Thiamine 100 MG/ML 2 ml VIAL 100 MG, Folic Acid 1 MG, Multiple Vitamin IV ADULT 10 ML i... IV ONE (13:00)
[2020-03-26] MEDS ORDERED: Al Hydrox/Mg Hydrox/Simet LIQ 30 ML UDC PO PRN (13:54)
[2020-03-26] MEDS ORDERED: Ondansetron 4 mg VIAL 2 MG/ML 2 ml VIAL IV PRN (13:54)
[2020-03-26] MEDS ORDERED: HYDROcodone/ACETAMIN 5/325 mg TAB PO PRN (13:58)
[2020-03-26] MEDS ORDERED: Senna TAB 8.6 mg TAB PO PRN (14:00)
[2020-03-26 14:42] LABS: Ferritin 237.1 ng/mL (24-336)
[2020-03-26 14:47] LABS: Folate 3.49 ng/mL (>3.99)
[2020-03-26 14:53] LABS: Urine Appearance Cloudy; Urine Bilirubin Negative (Negative); Urine Blood Negative (Negative); Urine Color Amber; Urine Glucose Negative (Negative); Urine Ketones Negative (Negative); Urine Nitrite Negative (Negative); Urine Protein 1+(30 mg/dL) (Negative); Urine Specific Gravity 1.023 (1.010-1.030); Urine Urobilinogen Positive (Negative)
[2020-03-26 14:56] LABS: Urine Bacteria Absent (Absent); Urine Red Blood Cell 1+(3-5/hpf) (Absent); Urine Squamous Epithelial Cell Present (Absent); Urine White Blood Cell Trace(0-5/hpf) (Absent)
[2020-03-26] MEDS ORDERED: Iohexol 300 (CONTRAST) 10 ML SDV IV ONE (17:59)
[2020-03-26] MEDS: Morphine 2 MG/ML SYRINGE IV PRN (18:15)
[2020-03-26] MEDS: Enoxaparin 40 MG/0.4 ML SYR SUBCUT SCH (21:22)
[2020-03-26] MEDS: NS 0.9% 1000 ml BAG 1,000 ML IV SCH (21:24)
[2020-03-27] MEDS: Morphine 2 MG/ML SYRINGE IV PRN ×2 (01:03→16:00)
[2020-03-27] MEDS: HYDROcodone/ACETAMIN 5/325 mg TAB PO PRN (04:46)
[2020-03-27 06:02] LABS: Albumin 2.6 g/dL (3.2-5.2); BUN/Creatinine Ratio 12.8 (8-20); Calcium 7.4 mg/dL (8.6-10.3); EGFR African American 123.3 (>60); EGFR Non-African American 101.9 (>60); Globulin 2.6 g/dL (2-4); HDL Cholesterol 44.5 mg/dL; Magnesium 1.6 mg/dL (1.9-2.7); Potassium 3.8 mmol/L (3.5-5.0); Total Bilirubin 3.1 mg/dL (0.2-1.0); Total Protein 5.2 g/dL (6.4-8.9)
[2020-03-27 06:07] LABS: ABS Lymphocytes 0.8 10^3/ul (1.0-4.8); ABS Monocytes 0.9 10^3/ul (0-0.8); Eosinophil % 0.4 %; Hematocrit 33 % (42-52); Hemoglobin 11.3 g/dL (14.0-18.0); Lymphocyte % 13.6 %; Mean Corpuscular HGB Conc 34 g/dL (31-36); Mean Corpuscular Hemoglobin 34 pg (27-31); Mean Corpuscular Volume 100 fL (80-94); Mean Platelet Volume 8.3 fL (7.4-10.4); Nucleated Red Blood Cells % 0.1; Red Cell Distribution Width 17 % (10-15); White Blood Count 5.7 10^3/uL (3.5-10.8)
[2020-03-27] MEDS ORDERED: Magnesium Sulfate 2 gm BAG 2 GM/50 ML BAG IVPB ONE (07:52)
[2020-03-27 10:31] LABS: Platelet Count 73 10^3/uL (150-450)
[2020-03-27] MEDS: NS 0.9% 1000 ml BAG 1,000 ML IV SCH ×3 (10:38→22:36)
[2020-03-27] MEDS: Multivitamins/Minerals TAB PO SCH (10:45)
[2020-03-27] MEDS ORDERED: NS 0.9% 1000 ml BAG 1,000 ML IV ONE ×2 (15:58→19:25)
[2020-03-27] MEDS: Enoxaparin 40 MG/0.4 ML SYR SUBCUT SCH (20:35)
[2020-03-28] MEDS: HYDROcodone/ACETAMIN 5/325 mg TAB PO PRN ×4 (01:26→20:01)
[2020-03-28 06:33] LABS: ABS Eosinophils 0.3 10^3/ul (0-0.6); ABS Lymphocytes 0.9 10^3/ul (1.0-4.8); ABS Monocytes 0.5 10^3/ul (0-0.8); Eosinophil % 6.8 %; Hematocrit 28 % (42-52); Hemoglobin 9.7 g/dL (14.0-18.0); Lymphocyte % 18.1 %; Mean Corpuscular HGB Conc 35 g/dL (31-36); Mean Corpuscular Hemoglobin 35 pg (27-31); Mean Corpuscular Volume 101 fL (80-94); Mean Platelet Volume 8.4 fL (7.4-10.4); Platelet Count 65 10^3/uL (150-450); Red Blood Count 2.79 10^6 /uL (4.18-5.48); Red Cell Distribution Width 17 % (10-15); White Blood Count 4.7 10^3/uL (3.5-10.8)
[2020-03-28 06:38] LABS: BUN/Creatinine Ratio 16.3 (8-20); Calcium 7.1 mg/dL (8.6-10.3); EGFR African American 101.9 (>60); EGFR Non-African American 84.2 (>60); Magnesium 1.9 mg/dL (1.9-2.7); Potassium 3.9 mmol/L (3.5-5.0)
[2020-03-28] MEDS: Multivitamins/Minerals TAB PO SCH (09:05)
[2020-03-28] MEDS: NS 0.9% 1000 ml BAG 1,000 ML IV SCH ×2 (09:06→22:33)
[2020-03-28 11:24] LABS: Urine Appearance Clear; Urine Bilirubin Negative (Negative); Urine Blood Negative (Negative); Urine Color Amber; Urine Glucose Negative (Negative); Urine Ketones Negative (Negative); Urine Nitrite Negative (Negative); Urine Protein Negative (Negative); Urine Specific Gravity 1.013 (1.010-1.030); Urine Urobilinogen Negative (Negative)
[2020-03-28] MEDS: Morphine 2 MG/ML SYRINGE IV PRN ×2 (11:24→17:10)
[2020-03-28] MEDS ORDERED: Pneumococcal Vac 23-Polyvalent IM ONE (16:00)
[2020-03-28] MEDS: Enoxaparin 40 MG/0.4 ML SYR SUBCUT SCH (20:01)
[2020-03-29 10:26] LABS: Corrected Retic Count 1.1 % (0.5-1.5); Hematocrit for Retic CNT 30 % (42-52); Immature Retic Fraction 0.51; RBC Retic Count 2.99 10^6/uL (4.18-5.48)
[2020-03-29 10:52] LABS: Albumin 2.3 g/dL (3.2-5.2); BUN/Creatinine Ratio 17.1 (8-20); Calcium 7.5 mg/dL (8.6-10.3); EGFR African American 139.7 (>60); EGFR Non-African American 115.4 (>60); Globulin 2.3 g/dL (2-4); Potassium 4.2 mmol/L (3.5-5.0); Total Bilirubin 4.2 mg/dL (0.2-1.0); Total Protein 4.6 g/dL (6.4-8.9)
[2020-03-29] MEDS: HYDROcodone/ACETAMIN 5/325 mg TAB PO PRN ×3 (11:16→22:24)
[2020-03-29] MEDS: Multivitamins/Minerals TAB PO SCH (11:19)
[2020-03-29] MEDS: NS 0.9% 1000 ml BAG 1,000 ML IV SCH ×2 (11:35→22:36)
[2020-03-29] MEDS: Enoxaparin 40 MG/0.4 ML SYR SUBCUT SCH (20:51)
[2020-03-30] MEDS: Multivitamins/Minerals TAB PO SCH (10:09)
[2020-03-30] MEDS: NS 0.9% 1000 ml BAG 1,000 ML IV SCH (10:17)
[2020-03-30] MEDS: HYDROcodone/ACETAMIN 5/325 mg TAB PO PRN ×2 (13:58→21:40)
[2020-03-30] MEDS: Nystatin TOP POWDER 15 GM BTL TOPICAL SCH ×2 (16:20→19:43)
[2020-03-30] MEDS: Morphine 2 MG/ML SYRINGE IV PRN (18:15)
[2020-03-30] MEDS: Enoxaparin 40 MG/0.4 ML SYR SUBCUT SCH (19:36)
[2020-03-31] MEDS: Morphine 2 MG/ML SYRINGE IV PRN ×4 (01:22→23:43)
[2020-03-31] MEDS: HYDROcodone/ACETAMIN 5/325 mg TAB PO PRN ×2 (04:20→21:15)
[2020-03-31 06:38] LABS: Albumin 2.3 g/dL (3.2-5.2); Albumin/Globulin Ratio 0.9 (1-3); BUN/Creatinine Ratio 13.2 (8-20); EGFR African American 192.5 (>60); EGFR Non-African American 159.1 (>60); Globulin 2.5 g/dL (2-4); Potassium 4.6 mmol/L (3.5-5.0); Total Bilirubin 2.4 mg/dL (0.2-1.0); Total Protein 4.8 g/dL (6.4-8.9)
[2020-03-31] MEDS: Multivitamins/Minerals TAB PO SCH (07:47)
[2020-03-31] MEDS: Nystatin TOP POWDER 15 GM BTL TOPICAL SCH ×3 (07:53→21:05)
[2020-03-31] MEDS: Enoxaparin 40 MG/0.4 ML SYR SUBCUT SCH (21:04)
[2020-04-01] MEDS: HYDROcodone/ACETAMIN 5/325 mg TAB PO PRN ×4 (04:06→20:10)
[2020-04-01] MEDS: Morphine 2 MG/ML SYRINGE IV PRN (06:11)
[2020-04-01 07:19] LABS: ABS Basophils 0.1 10^3/ul (0-0.2); ABS Eosinophils 0.7 10^3/ul (0-0.6); ABS Lymphocytes 0.8 10^3/ul (1.0-4.8); ABS Monocytes 1.2 10^3/ul (0-0.8); ABS Neutrophils 3.1 10^3/ul (1.5-7.7); Eosinophil % 12.2 %; Hematocrit 27 % (42-52); Hemoglobin 9.4 g/dL (14.0-18.0); Lymphocyte % 13.8 %; Mean Corpuscular HGB Conc 35 g/dL (31-36); Mean Corpuscular Hemoglobin 35 pg (27-31); Mean Corpuscular Volume 100 fL (80-94); Platelet Count 207 10^3/uL (150-450); Red Cell Distribution Width 17 % (10-15); White Blood Count 5.9 10^3/uL (3.5-10.8)
[2020-04-01 07:33] LABS: BUN/Creatinine Ratio 10.3 (8-20); Calcium 8.7 mg/dL (8.6-10.3); EGFR African American 173.5 (>60); EGFR Non-African American 143.4 (>60); Potassium 4.4 mmol/L (3.5-5.0)
[2020-04-01] MEDS: Multivitamins/Minerals TAB PO SCH (09:10)
[2020-04-01] MEDS: Nystatin TOP POWDER 15 GM BTL TOPICAL SCH ×3 (09:11→20:21)
[2020-04-01] MEDS ORDERED: HYDROcodone/ACETAMIN 5/325 mg TAB PO PRN (10:25)
[2020-04-01 11:19] LABS: Magnesium 1.4 mg/dL (1.9-2.7)
[2020-04-01 12:25] LABS: Hepatitis B Surface Antigen Nonreactive (Nonreactive)
[2020-04-01 12:30] LABS: Hepatitis A Ab IgM Negative (Negative)
[2020-04-01 12:31] LABS: Hepatitis B Core IgM Nonreactive (Nonreactive)
[2020-04-01 12:42] LABS: Hepatitis C Antibody Negative (Negative)
[2020-04-01] MEDS: Enoxaparin 40 MG/0.4 ML SYR SUBCUT SCH (20:10)
[2020-04-02] MEDS: HYDROcodone/ACETAMIN 5/325 mg TAB PO PRN ×3 (00:11→12:59)
[2020-04-02] MEDS: Multivitamins/Minerals TAB PO SCH (08:23)
[2020-04-02] MEDS: Nystatin TOP POWDER 15 GM BTL TOPICAL SCH (08:34)
[2020-04-02] MEDS ORDERED: Magnesium Sulfate IV 3 GM in NS 0.9% 100 ml BAG 100 ML IVPB ONE (08:54)
[2020-04-02 11:37] VITALS: BP 116/68
[2020-04-04 16:37] LABS: Hemochromatosis Result Summary NEGATIVE; Hemochromatosis Specimen WB Whole Blood
== END 2020-04-02 13:25 | DRG 342 ==
LOC: MED 09:23 → ED 09:23 → MED 18:01
PROVIDERS: ADMIT Pediatrics; ATTEND Pediatrics

== ENCOUNTER 2021-03-11 09:59 | Inpatient (IN) ==
[2021-03-11 12:47] LABS: ABS Eosinophils 0.2 10^3/ul (0-0.6); ABS Lymphocytes 0.9 10^3/ul (1.0-4.8); ABS Monocytes 0.9 10^3/ul (0-0.8); ABS Neutrophils 4.9 10^3/ul (1.5-7.7); Eosinophil % 2.6 %; Hematocrit 35 % (42-52); Hemoglobin 12.4 g/dL (14.0-18.0); Lymphocyte % 12.6 %; Mean Corpuscular HGB Conc 35 g/dL (31-36); Mean Corpuscular Hemoglobin 39 pg (27-31); Mean Corpuscular Volume 110 fL (80-94); Mean Platelet Volume 6.5 fL (7.4-10.4); Platelet Count 354 10^3/uL (150-450); Red Cell Distribution Width 20 % (10-15); White Blood Count 6.8 10^3/uL (3.5-10.8)
[2021-03-11 13:11] LABS: Activated Partial Thrombo Time 32.9 seconds (26.0-38.0); INR 1.23 (0.86-1.15)
[2021-03-11 13:18] LABS: ALT 29 U/L (7-52); AST 76 U/L (13-39); Albumin 3.4 g/dL (3.2-5.2); Alkaline Phosphatase 225 U/L (35-149); Anion Gap 7 mmol/L (2-11); Blood Urea Nitrogen 7 mg/dL (6-24); C Reactive Protein 14.81 mg/L (<8.01); CO2 Carbon Dioxide 28 mmol/L (22-32); Calcium 9.1 mg/dL (8.6-10.3); Chloride 96 mmol/L (101-111); Globulin 3.5 g/dL (2-4); Glucose 104 mg/dL (70-100); Magnesium 1.5 mg/dL (1.9-2.7); Potassium 3.9 mmol/L (3.5-5.0); Sodium 131 mmol/L (135-145); Total Protein 6.9 g/dL (6.4-8.9)
[2021-03-11 16:14] LABS: Urine Appearance Clear; Urine Bilirubin Negative (Negative); Urine Blood Negative (Negative); Urine Color Yellow; Urine Glucose Negative (Negative); Urine Ketones Negative (Negative); Urine Nitrite Negative (Negative); Urine Protein Negative (Negative); Urine Urobilinogen Negative (Negative)
[2021-03-11 17:12] LABS: Erythrocyte Sed Rate 48 mm/Hr (0-19)
[2021-03-11 17:41] LABS: Creatine Kinase 18 U/L (10-223)
[2021-03-11 17:50] LABS: Rapid COVID-19 Molecular Undetected (Undetected)
[2021-03-11 17:51] LABS: Alcohol, S < 13 mg/dL (<13)
[2021-03-11 18:16] LABS: Folate 2.34 ng/mL (5.90-24.80); Vitamin B12 544 pg/mL (180-914)
[2021-03-11] MEDS ORDERED: Thiamine 100 MG/ML 2 ml VIAL (200 mg) IM ONE (18:31)
[2021-03-11] MEDS ORDERED: Magnesium Sulfate 2 gm BAG 2 GM/50 ML BAG IVPB ONE (18:47)
[2021-03-11] MEDS ORDERED: NS 0.9% 1000 ml BAG 1,000 ML IV SCH (20:15)
[2021-03-11] MEDS ORDERED: Gadoteridol (CONTRAST) 279.3 MG/ML 10 ML IV ONE (21:43)
[2021-03-11] MEDS: Heparin 5000 UNITS/ML 1 mL VIAL SUBCUT SCH (22:45)
[2021-03-12 05:41] LABS: ABS Basophils 0.1 10^3/ul (0-0.2); ABS Eosinophils 0.3 10^3/ul (0-0.6); ABS Lymphocytes 1.1 10^3/ul (1.0-4.8); ABS Monocytes 1.1 10^3/ul (0-0.8); Eosinophil % 5.2 %; Hematocrit 32 % (42-52); Lymphocyte % 16.6 %; Mean Corpuscular HGB Conc 35 g/dL (31-36); Mean Corpuscular Hemoglobin 38 pg (27-31); Mean Corpuscular Volume 110 fL (80-94); Platelet Count 308 10^3/uL (150-450); Red Blood Count 2.89 10^6 /uL (4.18-5.48); Red Cell Distribution Width 21 % (10-15); White Blood Count 6.6 10^3/uL (3.5-10.8)
[2021-03-12] MEDS: Heparin 5000 UNITS/ML 1 mL VIAL SUBCUT SCH ×2 (05:46→13:38)
[2021-03-12 05:55] LABS: Calcium 8.6 mg/dL (8.6-10.3); Magnesium 2.1 mg/dL (1.9-2.7); Potassium 3.5 mmol/L (3.5-5.0)
[2021-03-12] MEDS: Multivitamins/Minerals TAB PO SCH (09:49)
[2021-03-12] MEDS: Nystatin TOP POWDER 15 GM BTL TOPICAL SCH ×2 (09:50→20:17)
[2021-03-12] MEDS ORDERED: Gadoteridol (CONTRAST) 279.3 MG/ML 10 ML IV ONE (21:09)
[2021-03-13 07:05] LABS: ABS Basophils 0.1 10^3/ul (0-0.2); ABS Eosinophils 0.3 10^3/ul (0-0.6); ABS Lymphocytes 0.9 10^3/ul (1.0-4.8); ABS Monocytes 0.6 10^3/ul (0-0.8); Eosinophil % 5.6 %; Hematocrit 32 % (42-52); Lymphocyte % 18.9 %; Mean Corpuscular HGB Conc 35 g/dL (31-36); Mean Corpuscular Hemoglobin 38 pg (27-31); Mean Corpuscular Volume 109 fL (80-94); Mean Platelet Volume 6.7 fL (7.4-10.4); Platelet Count 331 10^3/uL (150-450); Red Blood Count 2.93 10^6 /uL (4.18-5.48); Red Cell Distribution Width 20 % (10-15); White Blood Count 4.9 10^3/uL (3.5-10.8)
[2021-03-13 07:07] LABS: INR 1.23 (0.86-1.15)
[2021-03-13 07:14] LABS: Calcium 8.5 mg/dL (8.6-10.3); Potassium 3.5 mmol/L (3.5-5.0)
[2021-03-13 07:58] LABS: Body Fluid Source Cerebral Spinal
[2021-03-13 08:03] LABS: Body Fluid Appearance Clear; Body Fluid Color Colorless; CSF Tube # 4
[2021-03-13 08:07] LABS: Body Fluid WBC 1 /mcL
[2021-03-13 08:10] LABS: CSF Glucose 55 mg/dL (40-70)
[2021-03-13 08:52] LABS: Body Fluid Total Cells Counted 3
[2021-03-13] MEDS: Multivitamins/Minerals TAB PO SCH (08:55)
[2021-03-13] MEDS: Nystatin TOP POWDER 15 GM BTL TOPICAL SCH ×2 (08:58→21:22)
[2021-03-13] MEDS ORDERED: fentaNYL 100 mcg/2 ml 50 MCG/ML VIAL ONE (14:28)
[2021-03-13 19:58] LABS: % Iron Saturation 25 % (15-55); Iron 65 ug/dL (50-212); Total Iron Binding Capacity 259 mcg/dL (250-450); Transferrin 185 mg/dL (203-362); Unsaturated Iron Binding < 244 ug/dL
[2021-03-13 20:21] LABS: Vitamin D Total 25(OH) < 7.0 ng/mL (20-50)
[2021-03-14] MEDS: Enoxaparin 40 MG/0.4 ML SYR SUBCUT SCH (08:12)
[2021-03-14] MEDS: Multivitamins/Minerals TAB PO SCH (08:15)
[2021-03-14] MEDS: Nystatin TOP POWDER 15 GM BTL TOPICAL SCH ×2 (08:18→20:30)
[2021-03-14] MEDS ORDERED: Cholecalciferol (VIT D3) 1,000 unit TAB PO SCH (09:00)
[2021-03-14 10:10] LABS: Albumin 2.5 g/dL (3.4-4.7); Albumin/Globulin Ratio 0.78; Gamma Globulin 0.9 g/dL (0.6-1.6); Total Protein(PEP) 5.6 g/dL (6.3 - 7.9)
[2021-03-14 11:51] LABS: HIV 4th Generation Nonreactive (Nonreactive)
[2021-03-14 12:42] LABS: CSF VDRL Negative (Negative)
[2021-03-14 13:42] LABS: Calcium (PTH Intact) 8.5 mg/dL (8.6-10.3)
[2021-03-14 18:43] LABS: HSV 1 PCR, CSF Negative (Negative); HSV 2 PCR, CSF Negative (Negative)
[2021-03-15 06:57] LABS: ABS Basophils 0.1 10^3/ul (0-0.2); ABS Eosinophils 0.4 10^3/ul (0-0.6); ABS Lymphocytes 1.1 10^3/ul (1.0-4.8); ABS Monocytes 0.7 10^3/ul (0-0.8); ABS Neutrophils 3.2 10^3/ul (1.5-7.7); Eosinophil % 6.6 %; Hematocrit 32 % (42-52); Hemoglobin 10.8 g/dL (14.0-18.0); Mean Corpuscular HGB Conc 34 g/dL (31-36); Mean Corpuscular Hemoglobin 37 pg (27-31); Mean Corpuscular Volume 109 fL (80-94); Platelet Count 313 10^3/uL (150-450); Red Cell Distribution Width 20 % (10-15); White Blood Count 5.6 10^3/uL (3.5-10.8)
[2021-03-15 07:01] LABS: Calcium 8.6 mg/dL (8.6-10.3); Magnesium 1.6 mg/dL (1.9-2.7); Potassium 3.8 mmol/L (3.5-5.0)
[2021-03-15] MEDS ORDERED: Magnesium Sulf 4 GM/100 ML IV 4,000 MG/100 ML BAG IVPB ONE (08:26)
[2021-03-15] MEDS: Enoxaparin 40 MG/0.4 ML SYR SUBCUT SCH (10:32)
[2021-03-15] MEDS: Nystatin TOP POWDER 15 GM BTL TOPICAL SCH ×2 (10:40→21:16)
[2021-03-15] MEDS: Multivitamins/Minerals TAB PO SCH (10:40)
[2021-03-15] MEDS: Cholecalciferol (VIT D3) 1,000 unit TAB PO SCH (10:40)
[2021-03-15 14:55] LABS: Copper Level 0.91 mcg/mL (0.75-1.45)
[2021-03-16] MEDS: Multivitamins/Minerals TAB PO SCH (09:52)
[2021-03-16] MEDS: Cholecalciferol (VIT D3) 1,000 unit TAB PO SCH (09:52)
[2021-03-16] MEDS: Nystatin TOP POWDER 15 GM BTL TOPICAL SCH ×2 (09:53→23:11)
[2021-03-16] MEDS: Enoxaparin 40 MG/0.4 ML SYR SUBCUT SCH (09:55)
[2021-03-17 06:18] LABS: Calcium 8.6 mg/dL (8.6-10.3); Magnesium 1.8 mg/dL (1.9-2.7)
[2021-03-17] MEDS: Multivitamins/Minerals TAB PO SCH (09:15)
[2021-03-17] MEDS: Enoxaparin 40 MG/0.4 ML SYR SUBCUT SCH (09:15)
[2021-03-17] MEDS: Cholecalciferol (VIT D3) 1,000 unit TAB PO SCH (09:15)
[2021-03-17] MEDS: Nystatin TOP POWDER 15 GM BTL TOPICAL SCH ×2 (09:16→19:47)
[2021-03-17 16:14] LABS: CSF Oligoclonal Bands 2 bands; Oligoclonal Proteins Interpret 0 bands (<2); Serum Oligoclonal Bands 2 bands
[2021-03-18] MEDS: Multivitamins/Minerals TAB PO SCH (08:26)
[2021-03-18] MEDS: Enoxaparin 40 MG/0.4 ML SYR SUBCUT SCH (08:26)
[2021-03-18] MEDS: Cholecalciferol (VIT D3) 1,000 unit TAB PO SCH (08:27)
[2021-03-18] MEDS: Nystatin TOP POWDER 15 GM BTL TOPICAL SCH ×2 (08:28→20:28)
[2021-03-18 10:10] LABS: Albumin 2.4 g/dL (3.4-4.7); Albumin/Globulin Ratio 0.84; Gamma Globulin 0.8 g/dL (0.6-1.6); Total Protein(PEP) 5.2 g/dL (6.3 - 7.9)
[2021-03-18] MEDS ORDERED: methylPREDNISolone SOD SUCC 1000 MG ML VIAL IVPB SCH (14:00)
[2021-03-18] MEDS: methylPREDNISolone SOD SUCC 1,000 MG in NS 0.9% 250 ml 250 ML IVPB SCH (15:27)
[2021-03-18 15:54] LABS: Vitamin A, S 17.4 mcg/dL (32.5-78.0)
[2021-03-19 05:43] LABS: Calcium 8.9 mg/dL (8.6-10.3); Magnesium 1.8 mg/dL (1.9-2.7); Potassium 4.1 mmol/L (3.5-5.0)
[2021-03-19] MEDS: Multivitamins/Minerals TAB PO SCH (08:12)
[2021-03-19] MEDS: Enoxaparin 40 MG/0.4 ML SYR SUBCUT SCH (08:13)
[2021-03-19] MEDS: Cholecalciferol (VIT D3) 1,000 unit TAB PO SCH (08:13)
[2021-03-19] MEDS: methylPREDNISolone SOD SUCC 1,000 MG in NS 0.9% 250 ml 250 ML IVPB SCH (08:14)
[2021-03-19] MEDS: Nystatin TOP POWDER 15 GM BTL TOPICAL SCH (08:21)
[2021-03-19 08:35] LABS: Vitamin E 8.3 mg/L (5.5 - 17.0)
[2021-03-19 08:52] LABS: Vitamin K Level 0.22 ng/mL (0.10-2.20)
[2021-03-19 13:39] VITALS: BP 120/76
[2021-03-22 10:43] LABS: Anti-Glial/Neuronal Nuc Ab-1 A Negative titer (<1:240); Anti-Neuronal Nuclear Ab Type1 Negative titer (<1:240); Anti-Neuronal Nuclear Ab Type2 Negative titer (<1:240); Anti-Neuronal Nuclear Ab Type3 Negative titer (<1:240); CRMP-5 IgG Antibody Negative titer (<1:240); Purkinje Cell Cytoplasm Typ Tr Negative titer (<1:240); Purkinje Cell Cytoplasm Type 1 Negative titer (<1:240); Purkinje Cell Cytoplasm Type 2 Negative titer (<1:240)
[2021-03-25 12:09] LABS: AGNA-1, CSF Negative titer (<1:2); Amphiphysin Ab, CSF Negative titer (<1:2); CRMP-5-IgG, CSF Negative titer (<1:2); PCA-1, CSF Negative titer (<1:2); PCA-2, CSF Negative titer (<1:2); PCA-Tr, CSF Negative titer (<1:2)
== END 2021-03-19 15:47 | disposition swing bed (61) | DRG 40 ==
LOC: ED 09:59 → EDHOLD 18:49 → SUATTDRO 18:49 → MED 20:02
PROVIDERS: ADMIT Internal Medicine; ATTEND Internal Medicine

== ENCOUNTER 2021-03-19 15:44 | Inpatient (IN) ==
[2021-03-20] MEDS: Nystatin TOP POWDER 15 GM BTL TOPICAL SCH ×3 (00:38→19:50)
[2021-03-20] MEDS ORDERED: methylPREDNISolone SOD SUCC 1,000 MG in NS 0.9% 250 ml 250 ML IVPB ONE (09:00)
[2021-03-20] MEDS: Enoxaparin 40 MG/0.4 ML SYR SUBCUT SCH (09:18)
[2021-03-20] MEDS: Multivitamins/Minerals TAB PO SCH (09:19)
[2021-03-21] MEDS: Multivitamins/Minerals TAB PO SCH (09:10)
[2021-03-21] MEDS: Enoxaparin 40 MG/0.4 ML SYR SUBCUT SCH (09:15)
[2021-03-21] MEDS: Nystatin TOP POWDER 15 GM BTL TOPICAL SCH ×2 (09:17→19:39)
[2021-03-22] MEDS: Multivitamins/Minerals TAB PO SCH (10:17)
[2021-03-22] MEDS: Enoxaparin 40 MG/0.4 ML SYR SUBCUT SCH (10:18)
[2021-03-22] MEDS: Nystatin TOP POWDER 15 GM BTL TOPICAL SCH ×2 (10:57→22:25)
[2021-03-23] MEDS: Nystatin TOP POWDER 15 GM BTL TOPICAL SCH ×2 (10:08→21:00)
[2021-03-23] MEDS: Enoxaparin 40 MG/0.4 ML SYR SUBCUT SCH (10:08)
[2021-03-23] MEDS: Multivitamins/Minerals TAB PO SCH (10:12)
[2021-03-24] MEDS: Multivitamins/Minerals TAB PO SCH (08:56)
[2021-03-24] MEDS: Nystatin TOP POWDER 15 GM BTL TOPICAL SCH ×2 (08:57→21:02)
[2021-03-24] MEDS: Enoxaparin 40 MG/0.4 ML SYR SUBCUT SCH (09:11)
[2021-03-25] MEDS: Multivitamins/Minerals TAB PO SCH (09:22)
[2021-03-25] MEDS: Enoxaparin 40 MG/0.4 ML SYR SUBCUT SCH (09:24)
[2021-03-25] MEDS: Nystatin TOP POWDER 15 GM BTL TOPICAL SCH ×2 (09:26→20:01)
[2021-03-26] MEDS: Multivitamins/Minerals TAB PO SCH (11:17)
[2021-03-26] MEDS: Enoxaparin 40 MG/0.4 ML SYR SUBCUT SCH (11:24)
[2021-03-26] MEDS: Nystatin TOP POWDER 15 GM BTL TOPICAL SCH ×2 (11:28→20:57)
[2021-03-27 04:57] LABS: Hematocrit 33 % (42-52); Hemoglobin 11.3 g/dL (14.0-18.0); Mean Platelet Volume 7.9 fL (7.4-10.4); Platelet Count 287 10^3/uL (150-450)
[2021-03-27 05:22] LABS: eGFR CKD-EPI 114.7 (>60)
[2021-03-27] MEDS: Multivitamins/Minerals TAB PO SCH (09:08)
[2021-03-27] MEDS: Enoxaparin 40 MG/0.4 ML SYR SUBCUT SCH (09:18)
[2021-03-27] MEDS: Nystatin TOP POWDER 15 GM BTL TOPICAL SCH ×2 (09:52→20:59)
[2021-03-27] MEDS ORDERED: NS 0.9% 1000 ml BAG 1,000 ML IV ONE (12:42)
[2021-03-28] MEDS: Enoxaparin 40 MG/0.4 ML SYR SUBCUT SCH (07:41)
[2021-03-28] MEDS: Multivitamins/Minerals TAB PO SCH (07:43)
[2021-03-28] MEDS: Nystatin TOP POWDER 15 GM BTL TOPICAL SCH (07:50)
[2021-03-28 12:13] VITALS: BP 131/68
== END 2021-03-28 17:30 | disposition home or self-care (01) | DRG 342 ==
LOC: MED 15:47 → SUATTDRO 15:47 → MED 03-22 09:42
PROVIDERS: ADMIT Internal Medicine; ATTEND Internal Medicine